=== PATIENT | female | born 1960 | race Caucasian/White ===

== ENCOUNTER 2018-03-13 08:00 | Outpatient (CLI) | payer MEDICARE ==
[2018-03-13 13:11] LABS: BASOPHILS # (AUTO) 0.1 10^3/uL (0.0-0.1); BASOPHILS % (AUTO) 0.9 %; EOSINOPHILS # (AUTO) 0.5 10^3/uL (0.0-0.7); EOSINOPHILS % (AUTO) 5.7 %; HGB - HEMOGLOBIN 12.4 g/dL (12.0-16.0); LYMPHOCYTES # (AUTO) 2.6 10^3/uL (1.5-3.5); LYMPHOCYTES % (AUTO) 29.3 %; MEAN CORPUSCULAR HEMOGLOBIN 28.7 pg (27.0-31.0); MEAN CORPUSCULAR HGB CONC 33.5 g/dL (32.0-36.0); MEAN CORPUSCULAR VOLUME 85.8 fL (81.0-99.0); MEAN PLATELET VOLUME 8.9 fL (7.9-10.8); MONOCYTES # (AUTO) 0.5 10^3/uL (0.0-1.0); MONOCYTES % (AUTO) 5.9 %; NEUTROPHILS # (AUTO) 5.1 10^3/uL (1.5-6.6); NEUTROPHILS % (AUTO) 58.2 %; PLT - PLATELET COUNT 252 10^3/uL (130-450); RED BLOOD COUNT 4.31 10^6/uL (4.20-5.40); RED CELL DISTRIBUTION WIDTH 14.3 % (12.0-15.0); WHITE BLOOD COUNT 8.8 x10^3/uL (4.8-10.8)
[2018-03-13 13:55] LABS: HB2 TOTAL 13.5 g/dL; HEMOGLOBIN A1C 0.85 g/dL; HEMOGLOBIN A1C % 7.9 % (4.6-6.2)
[2018-03-13 14:02] LABS: ALBUMIN/GLOBULIN RATIO 1.3 (1.0-2.2); ALKALINE PHOSPHATASE 76 IU/L (42-121); ALT ALANINE AMINOTRANSFERASE 20 IU/L (10-60); AST ASPARTATE AMINOTRANSFERASE 15 IU/L (10-42); BILIRUBIN,TOTAL 0.2 mg/dL (0.2-1.0); BUN - BLOOD UREA NITROGEN 13 mg/dL (6-20); CALCIUM 9.1 mg/dL (8.5-10.3); CARBON DIOXIDE - CO2 28 mmol/L (21-32); CHLORIDE 106 mmol/L (101-111); CHOL/HDL RATIO 4.8 (<4.4); CHOLESTEROL 126 mg/dL; CREATININE 0.6 mg/dL (0.4-1.0); GFR - MDRD 103 (>89); GLUCOSE 119 mg/dL (70-100); HDL CHOLESTEROL 26 mg/dL; LDL CHOLESTEROL,CALCULATED 68 mg/dL; LDL/HDL RATIO 2.6 (<4.4); SODIUM 140 mmol/L (135-145); TOTAL PROTEIN 7.1 g/dL (6.7-8.2); VLDL CHOLESTEROL 32 mg/dL
== END 2018-03-13 08:01 | disposition home or self-care (01) ==
LOC: LAB.N 08:00
PROVIDERS: ATTEND Nurse Practitioner
DX: E11.9 Type 2 diabetes mellitus without complications (principal); E55.9 Vitamin D deficiency, unspecified; E78.5 Hyperlipidemia, unspecified; I10 Essential (primary) hypertension; Z79.4 Long term (current) use of insulin
CPT/HCPCS: 36415; 80053; 80061; 82043; 82306; 83036; 83721; 84443; 85025

== ENCOUNTER 2018-07-05 07:55 | Outpatient (CLI) | payer MEDICARE ==
[2018-07-05 13:10] LABS: HB2 TOTAL 13.3 g/dL; HEMOGLOBIN A1C 0.64 g/dL; HEMOGLOBIN A1C % 6.6 % (4.6-6.2)
[2018-07-05 13:43] LABS: ALBUMIN 3.7 g/dL (3.2-5.5); ALBUMIN/GLOBULIN RATIO 1.2 (1.0-2.2); ALKALINE PHOSPHATASE 62 IU/L (42-121); ALT ALANINE AMINOTRANSFERASE 17 IU/L (10-60); AST ASPARTATE AMINOTRANSFERASE 16 IU/L (10-42); BILIRUBIN,TOTAL 0.6 mg/dL (0.2-1.0); BUN - BLOOD UREA NITROGEN 13 mg/dL (6-20); CALCIUM 9.2 mg/dL (8.5-10.3); CARBON DIOXIDE - CO2 27 mmol/L (21-32); CHLORIDE 104 mmol/L (101-111); CHOL/HDL RATIO 4.6 (<4.4); CHOLESTEROL 137 mg/dL; CREATININE 0.6 mg/dL (0.4-1.0); GFR - MDRD 103 (>89); GLUCOSE 118 mg/dL (70-100); HDL CHOLESTEROL 30 mg/dL; LDL CHOLESTEROL,CALCULATED 62 mg/dL; LDL/HDL RATIO 2.1 (<4.4); SODIUM 139 mmol/L (135-145); TOTAL PROTEIN 6.8 g/dL (6.7-8.2); VLDL CHOLESTEROL 45 mg/dL
== END 2018-07-05 07:56 | disposition home or self-care (01) ==
LOC: LAB.N 07:55
PROVIDERS: ATTEND Nurse Practitioner
DX: E11.9 Type 2 diabetes mellitus without complications (principal)
CPT/HCPCS: 36415; 80053; 80061; 82043; 83036; 83721; 84443

== ENCOUNTER 2019-01-16 08:00 | Outpatient (CLI) | payer MEDICARE ==
[2019-01-16 13:15] LABS: ALBUMIN 3.8 g/dL (3.2-5.5); ALBUMIN/GLOBULIN RATIO 1.2 (1.0-2.2); ALKALINE PHOSPHATASE 70 IU/L (42-121); ALT ALANINE AMINOTRANSFERASE 21 IU/L (10-60); AST ASPARTATE AMINOTRANSFERASE 16 IU/L (10-42); BILIRUBIN,TOTAL 0.5 mg/dL (0.2-1.0); BUN - BLOOD UREA NITROGEN 14 mg/dL (6-20); CARBON DIOXIDE - CO2 26 mmol/L (21-32); CHLORIDE 102 mmol/L (101-111); CHOL/HDL RATIO 4.6 (<4.4); CHOLESTEROL 134 mg/dL; CREATININE 0.5 mg/dL (0.4-1.0); GFR - MDRD 127 (>89); GLUCOSE 192 mg/dL (70-100); HDL CHOLESTEROL 29 mg/dL; LDL CHOLESTEROL,CALCULATED 75 mg/dL; LDL/HDL RATIO 2.6 (<4.4); SODIUM 137 mmol/L (135-145); TOTAL PROTEIN 6.9 g/dL (6.7-8.2); VLDL CHOLESTEROL 30 mg/dL
[2019-01-16 13:19] LABS: HB2 TOTAL 14.1 g/dL; HEMOGLOBIN A1C 0.98 g/dL; HEMOGLOBIN A1C % 8.5 % (4.6-6.2)
== END 2019-01-16 23:59 | disposition home or self-care (01) ==
LOC: LAB.N 08:00
PROVIDERS: ATTEND Nurse Practitioner
DX: E11.9 Type 2 diabetes mellitus without complications (principal)
CPT/HCPCS: 36415; 80053; 80061; 82043; 83036; 83721; 84443

== ENCOUNTER 2019-05-08 08:00 | Outpatient (CLI) | payer MEDICARE ==
[2019-05-08 13:26] LABS: HB2 TOTAL 12.7 g/dL; HEMOGLOBIN A1C 0.82 g/dL; HEMOGLOBIN A1C % 8.1 % (4.6-6.2)
[2019-05-08 13:30] LABS: MICROALBUM/CREATININE RATIO,UR 22.6 ug/mg (<30.0); MICROALBUMIN,URINE 1.9 mg/dL (0-300.0)
[2019-05-08 13:31] LABS: ALBUMIN 3.9 g/dL (3.2-5.5); ALBUMIN/GLOBULIN RATIO 1.1 (1.0-2.2); ALKALINE PHOSPHATASE 61 IU/L (42-121); ALT ALANINE AMINOTRANSFERASE 17 IU/L (10-60); AST ASPARTATE AMINOTRANSFERASE 16 IU/L (10-42); BILIRUBIN,TOTAL 0.4 mg/dL (0.2-1.0); BUN - BLOOD UREA NITROGEN 12 mg/dL (6-20); CARBON DIOXIDE - CO2 25 mmol/L (21-32); CHLORIDE 103 mmol/L (101-111); CHOL/HDL RATIO 3.1 (<4.4); CHOLESTEROL 109 mg/dL; CREATININE 0.5 mg/dL (0.4-1.0); GFR - MDRD 126 (>89); GLUCOSE 134 mg/dL (70-100); HDL CHOLESTEROL 35 mg/dL; LDL CHOLESTEROL,CALCULATED 57 mg/dL; LDL/HDL RATIO 1.6 (<4.4); SODIUM 137 mmol/L (135-145); TOTAL PROTEIN 7.3 g/dL (6.7-8.2); VLDL CHOLESTEROL 17 mg/dL
== END 2019-05-08 23:59 | disposition home or self-care (01) ==
LOC: LAB.N 08:00
PROVIDERS: ATTEND Physician Assistant Medical
DX: E11.9 Type 2 diabetes mellitus without complications (principal); Z79.4 Long term (current) use of insulin
CPT/HCPCS: 36415; 80053; 80061; 82043; 82570; 83036; 83721; 84443

== ENCOUNTER 2019-09-02 10:15 | Outpatient (CLI) | payer MEDICARE ==
[2019-09-02 12:43] LABS: HB2 TOTAL 13.4 g/dL; HEMOGLOBIN A1C 0.68 g/dL; HEMOGLOBIN A1C % 6.8 % (4.6-6.2)
== END 2019-09-02 23:59 | disposition home or self-care (01) ==
LOC: LAB.N 10:15
PROVIDERS: ATTEND Physician Assistant Medical
DX: E11.9 Type 2 diabetes mellitus without complications (principal)
CPT/HCPCS: 36415; 83036

== ENCOUNTER 2020-03-13 10:59 | Outpatient (CLI) | payer MEDICARE ==
[2020-03-13 11:18] LABS: BASOPHILS # (AUTO) 0.1 10^3/uL (0.0-0.1); BASOPHILS % (AUTO) 0.9 %; EOSINOPHILS # (AUTO) 0.3 10^3/uL (0.0-0.7); EOSINOPHILS % (AUTO) 2.8 %; HGB - HEMOGLOBIN 13.1 g/dL (12.0-16.0); LYMPHOCYTES # (AUTO) 3.1 10^3/uL (1.5-3.5); LYMPHOCYTES % (AUTO) 26.3 %; MEAN CORPUSCULAR HEMOGLOBIN 28.8 pg (27.0-31.0); MEAN CORPUSCULAR VOLUME 89.9 fL (81.0-99.0); MEAN PLATELET VOLUME 9.6 fL (7.9-10.8); MONOCYTES # (AUTO) 0.8 10^3/uL (0.0-1.0); MONOCYTES % (AUTO) 6.6 %; NEUTROPHILS # (AUTO) 7.3 10^3/uL (1.5-6.6); NEUTROPHILS % (AUTO) 62.9 %; PLT - PLATELET COUNT 280 10^3/uL (130-450); RED BLOOD COUNT 4.55 10^6/uL (4.20-5.40); RED CELL DISTRIBUTION WIDTH 14.7 % (12.0-15.0); WHITE BLOOD COUNT 11.6 x10^3/uL (4.8-10.8)
[2020-03-13 11:35] LABS: HB2 TOTAL 13.6 g/dL; HEMOGLOBIN A1C 0.67 g/dL; HEMOGLOBIN A1C % 6.7 % (4.6-6.2)
[2020-03-13 11:40] LABS: ALBUMIN 4.3 g/dL (3.2-5.5); ALBUMIN/GLOBULIN RATIO 1.2 (1.0-2.2); ALKALINE PHOSPHATASE 79 IU/L (42-121); ALT ALANINE AMINOTRANSFERASE 20 IU/L (10-60); AST ASPARTATE AMINOTRANSFERASE 17 IU/L (10-42); BILIRUBIN,TOTAL 0.7 mg/dL (0.2-1.0); BUN - BLOOD UREA NITROGEN 20 mg/dL (6-20); CALCIUM 9.2 mg/dL (8.5-10.3); CARBON DIOXIDE - CO2 25 mmol/L (21-32); CHLORIDE 102 mmol/L (101-111); CHOL/HDL RATIO 2.8 (<4.4); CHOLESTEROL 129 mg/dL; CK- CREATINE KINASE 67 IU/L (22-269); CREATININE 0.7 mg/dL (0.4-1.0); GLUCOSE 126 mg/dL (70-100); HDL CHOLESTEROL 46 mg/dL; LDL CHOLESTEROL,CALCULATED 67 mg/dL; LDL/HDL RATIO 1.5 (<4.4); SODIUM 136 mmol/L (135-145); VLDL CHOLESTEROL 16 mg/dL
[2020-03-13 11:48] LABS: CREATININE,URINE 35.3 mg/dL; MICROALBUM/CREATININE RATIO,UR 36.8 ug/mg (<30.0); MICROALBUMIN,URINE 1.3 mg/dL (0-300.0)
[2020-03-14 12:09] LABS: HEPATITIS C ANTIBODY NON-REACTIVE (NON-REACTIVE)
== END 2020-03-13 11:00 | disposition home or self-care (01) ==
LOC: LAB 10:59
PROVIDERS: ATTEND Internal Medicine
DX: Z79.899 Other long term (current) drug therapy (principal); J44.9 Chronic obstructive pulmonary disease, unspecified; Z13.6 Encounter for screening for cardiovascular disorders; K21.9 Gastro-esophageal reflux disease without esophagitis; M79.7 Fibromyalgia; E11.9 Type 2 diabetes mellitus without complications; I10 Essential (primary) hypertension
CPT/HCPCS: 36415; 80053; 80061; 82043; 82550; 82570; 83036; 83721; 84443; 85025; 86803

== ENCOUNTER 2020-06-08 13:12 | Outpatient (CLI) | payer MEDICARE ==
--- NOTE | 2020-06-09 15:11 | Mammography Report ---
BILATERAL DIGITAL SCREENING MAMMOGRAM 3D/2D: 06/08/2020 CLINICAL: Routine screening. Comparison is made to exams dated: 03/09/2017 mammogram, 02/11/2016 mammogram, and 02/05/2015 mammogram - [facility]. The tissue of both breasts is predominantly fatty. No significant masses, calcifications, or other findings are seen in either breast. There has been no significant interval change. IMPRESSION: NEGATIVE There is no mammographic evidence of malignancy. A 1 year screening mammogram is recommended. This exam was interpreted at Station ID: [id number]. NOTE: For mammograms, a report in lay terms will be sent to the patient. Approximately 15% of breast malignancies will not be visualized mammographically. In the management of a palpable breast mass, a negative mammogram must not discourage biopsy of a clinically suspicious lesion. Electronically Signed By: Haroldo Cosme M.D., jr/lacie:06/08/2020 14:19:56 ACR BI-RADS Category 1: Negative 3341F PARENCHYMAL PATTERN: (F) - The breast(s) demonstrate(s) diffuse fatty replacement. BI-RADS CATEGORY: (1) - 1 RECOMMENDATION: (ANNUAL) - Recommend routine annual screening mammography. [id number] 1 year screening LATERALITY: (B)
== END 2020-06-08 13:13 | disposition home or self-care (01) ==
LOC: DI 13:12
PROVIDERS: ATTEND Internal Medicine
DX: Z12.31 Encounter for screening mammogram for malignant neoplasm of breast (principal)
CPT/HCPCS: 77063; 77067

== ENCOUNTER 2020-08-22 16:09 | Outpatient (CLI) | payer MEDICARE | END 2020-08-22 16:10 | disposition critical access hospital (66) | LOC: EMS 16:09 | PROVIDERS: ATTEND Surgery | DX: R41.82 Altered mental status, unspecified (principal) | CPT/HCPCS: A0425; A0427 ==

== ENCOUNTER 2020-08-22 16:28 | Inpatient (IN) | payer MEDICARE ==
[2020-08-22 17:14] LABS: BASOPHILS % (AUTO) 0.2 %; HGB - HEMOGLOBIN 12.3 g/dL (12.0-16.0); LYMPHOCYTES # (AUTO) 1.6 10^3/uL (1.5-3.5); LYMPHOCYTES % (AUTO) 8.4 %; MEAN CORPUSCULAR HEMOGLOBIN 28.7 pg (27.0-31.0); MEAN CORPUSCULAR HGB CONC 32.5 g/dL (32.0-36.0); MEAN CORPUSCULAR VOLUME 88.3 fL (81.0-99.0); MEAN PLATELET VOLUME 9.7 fL (7.9-10.8); MONOCYTES # (AUTO) 1.1 10^3/uL (0.0-1.0); MONOCYTES % (AUTO) 5.6 %; NEUTROPHILS # (AUTO) 16.1 10^3/uL (1.5-6.6); NEUTROPHILS % (AUTO) 85.1 %; PLT - PLATELET COUNT 287 10^3/uL (130-450); RED BLOOD COUNT 4.28 10^6/uL (4.20-5.40); RED CELL DISTRIBUTION WIDTH 13.9 % (12.0-15.0)
--- NOTE | 2020-08-22 17:19 | ED Physician Documentation ---
History of Present Illness - Stated complaint Stated Complaint: AMS - Chief complaint Chief Complaint: Neuro - History obtained from History obtained from: EMS - History of Present Illness Timing: Today Pain level max: 0 Pain level now: 0 - Additonal information Additional information: Very limited history available. The only history that is known is that the patient is a diabetic and the states that she is altered and somnolent today. No other history available. EMS states that her blood sugar was normal. Review of Systems Unable to obtain: AMS PD PAST MEDICAL HISTORY - Past Medical History Past Medical History: Yes Endocrine/Autoimmune: Type 2 diabetes - Allergies Allergies/Adverse Reactions: Allergies Allergy/AdvReac Type Severity Reaction Status Date / Time Unable to Assess Allergy Verified 08/22/20 16:34 PD ED PE NORMAL - Vitals Vital signs reviewed: Yes - General General: Other (unresponsive, breathing) - HEENT HEENT: Atraumatic, PERRL, Moist mucous membranes - Neck Neck: No bony TTP - Cardiac Cardiac: RRR - Respiratory Respiratory: No respiratory distress, Clear bilaterally - Abdomen Abdomen: Soft, Non tender, Non distended - Derm Derm: Warm and dry - Extremities Extremities: No edema, No calf tenderness / cord - Neuro Neuro: Other (unresponsive) Eye Opening: To Pain Motor: Localizes to Pain Verbal: None GCS Score: 8 Results - Vitals Vitals: Vital Signs - 24 hr 08/22/20 08/22/20 08/22/20 16:30 16:35 18:27 Temperature 37.1 C 37.1 C 37.1 C Heart Rate 108 H 109 H 110 H Respiratory 16 16 13 Rate Blood Pressure 120/61 125/58 L 117/60 O2 Saturation 95 96 98 08/22/20 20:00 Temperature 36.7 C Heart Rate 106 H Respiratory 24 Rate Blood Pressure 101/59 L O2 Saturation 95 Oxygen O2 Source Room air - Labs Labs: Laboratory Tests 08/22/20 08/22/20 08/22/20 17:06 17:06 17:06 WBC 19.0 H RBC 4.28 Hgb 12.3 Hct 37.8 MCV 88.3 MCH 28.7 MCHC 32.5 RDW 13.9 Plt Count 287 MPV 9.7 Neut # (Auto) 16.1 H Lymph # (Auto) 1.6 [place] # (Auto) 1.1 H Eos # (Auto) 0.0 Baso # (Auto) 0.0 Absolute Nucleated RBC 0.00 Nucleated RBC % 0.0 VBG pH VBG pCO2 VBG pO2 VBG HCO3 VBG Total CO2 VBG O2 Saturation VBG Base Excess Sodium 135 Potassium 4.3 Chloride 98 L Carbon Dioxide 27 Anion Gap 10.0 BUN 20 Creatinine 0.8 Estimated GFR (MDRD) 73 L Glucose 171 H Lactic Acid Calcium 10.1 Total Bilirubin 0.6 AST 12 ALT 15 Alkaline Phosphatase 64 Troponin I High Sens Total Protein 8.1 Albumin 3.9 Globulin 4.2 Albumin/Globulin Ratio 0.9 L Lipase 21 L TSH 0.22 L Free T4 Urine Color Urine Clarity Urine pH Ur Specific [place] Urine Protein Urine Glucose (UA) Urine Ketones Urine Occult Blood Urine Nitrite Urine Bilirubin Urine Urobilinogen Ur Leukocyte Esterase Urine RBC Urine WBC Urine WBC Clumps Ur Squamous Epith Cells Urine Bacteria Ur Microscopic Review Urine Culture Comments Salicylates < 6.0 Urine Opiates Screen Ur Oxycodone Screen Urine Methadone Screen Ur Propoxyphene Screen Acetaminophen < 10 L Ur Barbiturates Screen Ur Tricyclics Screen Ur Phencyclidine Scrn Ur Amphetamine Screen U Methamphetamines Scrn U Benzodiazepines Scrn Urine Cocaine Screen U Cannabinoids Screen Ethyl Alcohol < 5.0 08/22/20 08/22/20 08/22/20 17:06 17:06 17:40 WBC RBC Hgb Hct MCV MCH MCHC RDW Plt Count MPV Neut # (Auto) Lymph # (Auto) [place] # (Auto) Eos # (Auto) Baso # (Auto) Absolute Nucleated RBC Nucleated RBC % VBG pH VBG pCO2 VBG pO2 VBG HCO3 VBG Total CO2 VBG O2 Saturation VBG Base Excess Sodium Potassium Chloride Carbon Dioxide Anion Gap BUN Creatinine Estimated GFR (MDRD) Glucose Lactic Acid Calcium Total Bilirubin AST ALT Alkaline Phosphatase Troponin I High Sens 4.5 Total Protein Albumin Globulin Albumin/Globulin Ratio Lipase TSH Free T4 1.13 Urine Color YELLOW Urine Clarity HAZY Urine pH 6.0 Ur Specific [place] 1.025 Urine Protein 30 H Urine Glucose (UA) NEGATIVE Urine Ketones 40 H Urine Occult Blood TRACE-INTA Urine Nitrite POSITIVE H Urine Bilirubin NEGATIVE Urine Urobilinogen 0.2 (NORMAL) Ur Leukocyte Esterase NEGATIVE Urine RBC 6-10 H Urine WBC 11-25 H Urine WBC Clumps PRESENT Ur Squamous Epith Cells RARE Squamous Urine Bacteria Many H Ur Microscopic Review INDICATED Urine Culture Comments INDICATED Salicylates Urine Opiates Screen NEGATIVE Ur Oxycodone Screen NEGATIVE Urine Methadone Screen NEGATIVE Ur Propoxyphene Screen NEGATIVE Acetaminophen Ur Barbiturates Screen NEGATIVE Ur Tricyclics Screen POSITIVE H Ur Phencyclidine Scrn NEGATIVE Ur Amphetamine Screen NEGATIVE U Methamphetamines Scrn NEGATIVE U Benzodiazepines Scrn NEGATIVE Urine Cocaine Screen NEGATIVE U Cannabinoids Screen NEGATIVE Ethyl Alcohol 08/22/20 08/22/20 19:32 19:32 WBC RBC Hgb Hct MCV MCH MCHC RDW Plt Count MPV Neut # (Auto) Lymph # (Auto) [place] # (Auto) Eos # (Auto) Baso # (Auto) Absolute Nucleated RBC Nucleated RBC % VBG pH 7.488 H VBG pCO2 29.7 L VBG pO2 35.6 VBG HCO3 22.0 L VBG Total CO2 22.9 L VBG O2 Saturation 78.0 VBG Base Excess -0.4 Sodium Potassium Chloride Carbon Dioxide Anion Gap BUN Creatinine Estimated GFR (MDRD) Glucose Lactic Acid 1.8 Calcium Total Bilirubin AST ALT Alkaline Phosphatase Troponin I High Sens Total Protein Albumin Globulin Albumin/Globulin Ratio Lipase TSH Free T4 Urine Color Urine Clarity Urine pH Ur Specific [place] Urine Protein Urine Glucose (UA) Urine Ketones Urine Occult Blood Urine Nitrite Urine Bilirubin Urine Urobilinogen Ur Leukocyte Esterase Urine RBC Urine WBC Urine WBC Clumps Ur Squamous Epith Cells Urine Bacteria Ur Microscopic Review Urine Culture Comments Salicylates Urine Opiates Screen Ur Oxycodone Screen Urine Methadone Screen Ur Propoxyphene Screen Acetaminophen Ur Barbiturates Screen Ur Tricyclics Screen Ur Phencyclidine Scrn Ur Amphetamine Screen U Methamphetamines Scrn U Benzodiazepines Scrn Urine Cocaine Screen U Cannabinoids Screen Ethyl Alcohol - Rads (name of study) head CT Radiology: Prelim report reviewed, EMP read contemporaneously, See rad report (No acute intracranial abnormality ) cxr Radiology: Prelim report reviewed, EMP read contemporaneously, See rad report (Bilateral pulmonary edema which may reflect cardiogenic or noncardiogenic etiologies such as atypical infection. ) abd/pelvis CT Radiology: Prelim report reviewed, EMP read contemporaneously, See rad report PD MEDICAL DECISION MAKING - ED course Complexity details: reviewed results, re-evaluated patient, considered differential, d/w patient, d/w artist consultant ED course: Unclear etiology of the patient's symptoms. Does have significant leukocytosis and a UTI. Given IV fluids and IV antibiotics. Her mental status gradually improved. She is still mildly slow to respond but is speaking and speaking clearly. She states she feels much better. Neck is supple and full range of motion. No signs of encephalitis or meningitis. No acute findings on head CT. We will place the patient in observation to see how she progresses overnight. Discussed the case with Dr. Luong, hospitalist who accepts. This document was made in part using voice recognition software. While efforts are made to proofread this document, sound alike and grammatical errors may occur. 1. Mild colonic wall thickening within the descending and sigmoid colon suggestive of a mild infectious or inflammatory colitis. 2. Mild gastric wall thickening and mucosal enhancement in the antrum may reflect a mild gastritis. 3. Colonic diverticulosis without acute diverticulitis. Departure - Departure Disposition: ED Place in Observation Clinical Impression: Altered mental status Qualifiers: Altered mental status type: unspecified Qualified Code(s): R41.82 - Altered mental status, unspecified UTI (urinary tract infection) Qualifiers: Urinary tract infection type: acute cystitis Hematuria presence: without hematuria Qualified Code(s): N30.00 - Acute cystitis without hematuria Condition: Stable Discharge Date/Time: 08/22/20 21:43
[2020-08-22 17:31] LABS: ACETAMINOPHEN < 10 ug/mL (10-30); ALBUMIN 3.9 g/dL (3.2-5.5); ALBUMIN/GLOBULIN RATIO 0.9 (1.0-2.2); ALKALINE PHOSPHATASE 64 IU/L (42-121); ALT ALANINE AMINOTRANSFERASE 15 IU/L (10-60); AST ASPARTATE AMINOTRANSFERASE 12 IU/L (10-42); BILIRUBIN,TOTAL 0.6 mg/dL (0.2-1.0); BUN - BLOOD UREA NITROGEN 20 mg/dL (6-20); CALCIUM 10.1 mg/dL (8.5-10.3); CARBON DIOXIDE - CO2 27 mmol/L (21-32); CHLORIDE 98 mmol/L (101-111); CREATININE 0.8 mg/dL (0.4-1.0); GLUCOSE 171 mg/dL (70-100); LIPASE 21 U/L (22-51); SALICYLATE < 6.0 mg/dL; SODIUM 135 mmol/L (135-145); TOTAL PROTEIN 8.1 g/dL (6.7-8.2)
--- NOTE | 2020-08-22 17:41 | CT Report ---
PROCEDURE: HEAD WO INDICATIONS: aloc TECHNIQUE: Noncontrast 4.5 mm thick angled axial sections acquired from the foramen magnum to the vertex. For r adiation dose reduction, the following was used: automated exposure control, adjustment of mA and/or kV according to patient size. COMPARISON: None. FINDINGS: Image quality: Excellent. CSF spaces: Basal cisterns are patent. No extra-axial fluid collections. Ventricles are normal in size and shape. Brain: No midline shift. No intracranial masses or hemorrhage. Travis-white matter interface is norm al. Skull and face: Calvarium and visualized facial bones are intact, without suspicious lesions. Sinuses: Mild mucosal thickening is seen within the ethmoid air cells. The paranasal sinuses otherwi se appear clear. Minimal fluid is seen within the right mastoid air cells. There has been a prior lef t mastoidectomy, with prominent fluid seen within the remaining left mastoid air cells. IMPRESSION: No acute intracranial abnormality is detected to explain the patient's presenting histor y. Prior left mastoidectomy, with prominent mastoid air cell fluid. A minimal amount of right-sided mast oid air cell fluid can be seen. Reviewed by: Zev Swanson MD on 08/22/2020 4:39 PM RUBY Approved by: Zev Swanson MD on 08/22/2020 4:39 PM RUBY Station ID: [id number]
[2020-08-22 17:46] LABS: MUDS CUTOFF CONCENTRATIONS CUTOFF CONC BELOW:
[2020-08-22 17:51] LABS: BILIRUBIN,URINE NEGATIVE (NEGATIVE); GLUCOSE, URINE (UA) NEGATIVE (NEGATIVE); KETONES,URINE (UA) 40 mg/dL (NEGATIVE); LEUKOCYTE ESTERASE, URINE NEGATIVE (NEGATIVE); NITRITE,URINE POSITIVE (NEGATIVE); OCCULT BLOOD,URINE TRACE-INTA (NEGATIVE); PROTEIN,URINE 30 mg/dL (NEGATIVE); UROBILINOGEN,URINE 0.2 (NORMAL) E.U./dL (NORMAL)
[2020-08-22 18:01] LABS: CLARITY,URINE HAZY (CLEAR)
[2020-08-22 18:02] LABS: AMPHETAMINE SCREEN,URINE NEGATIVE (NEGATIVE); BACTERIA,URINE Many /HPF (None Seen); BENZODIAZEPINES SCREEN, URINE NEGATIVE (NEGATIVE); COCAINE SCREEN URINE NEGATIVE (NEGATIVE); METHADONE SCREEN, URINE NEGATIVE (NEGATIVE); METHAMPHETAMINES SCREEN, URINE NEGATIVE (NEGATIVE); OPIATE SCREEN, URINE NEGATIVE (NEGATIVE); OXYCODONE SCREEN, URINE NEGATIVE (NEGATIVE); PROPOXYPHENE SCREEN, URINE NEGATIVE (NEGATIVE); SQUAMOUS EPITHELIAL CELL,UR RARE Squamous (<= Few); TRICYCLIC ANTIDEPRESSANT,URINE POSITIVE (NEGATIVE); WBC CLUMPS,URINE PRESENT
[2020-08-22] MEDS ORDERED: PIPERACILLIN/TAZOBACTAM 4.5 GM in SODIUM CHLORIDE 0.9% MINIBAG 100 ML IV STA (18:25)
[2020-08-22] MEDS ORDERED: VANCOMYCIN INJ 1 GM in SODIUM CHLORIDE 0.9% 500 ML IV STA (18:25)
[2020-08-22] MEDS ORDERED: SODIUM CHLORIDE 0.9% 1,000 ML IV STA ×2 (18:26→19:15)
[2020-08-22] MEDS ORDERED: VANCOMYCIN 1 GM VIAL ONE (18:39)
[2020-08-22 19:38] LABS: VBG BASE EXCESS -0.4 mmol/L (-2 - +2); VBG PCO2 29.7 mmHg (41-51); VBG PH 7.488 (7.31-7.41); VBG PO2 35.6 mmHg (25-47); VBG TOTAL CO2 22.9 mmol/L (24-29)
[2020-08-22] MEDS ORDERED: IOVERSOL 320 100 ML VIAL IVP ONE ×2 (20:36→20:55)
[2020-08-22] MEDS ORDERED: SODIUM CHLORIDE FLUSH 0.9% 10 ML SYRINGE IVP PRN (21:00)
[2020-08-22] MEDS ORDERED: ONDANSETRON 4 MG/2 ML VIAL IVP PRN (21:00)
[2020-08-22] MEDS ORDERED: ACETAMINOPHEN 325 MG TABLET PO PRN (21:00)
--- NOTE | 2020-08-22 21:05 | HISTORY & PHYSICAL EXAMINATION ---
Chief Complaint - Chief Complaint Chief Complaint: increased somnolence, confusion History of Present Illness - Admitted From Admitted From:: [facility] ED - History Obtained From Records Reviewed: Yes History obtained from: Patient spouse Exam Limitations: Confusion - History of Present Illness HPI Comment/Other: Patient is a 60-year-old female with history of COPD, fibromyalgia, arthritis, hypertension, diabetes mellitus on Levemir, hyperlipidemia who presented to the ED today with increased somnolence. She was brought to the emergency department by her who reported that the patient has been sleeping most of the day since yesterday. She has also been unable to do much. The patient has complained of increased urinary frequency over the past week. In the ED work-up included a CBC which showed a WBC of 19. She also had a urinary analysis done which was strongly indicated of a UTI. It was positive for nitrites, urine had 11-25 WBCs, many bacteria and WBC clumps. 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 Patient's mother from lung cancer at age 62. Mesothelioma. Patient has 2 brothers with seizures. Patient's 3 brothers have undergone CABG. The patient's children are all healthy Living arrangement: At home Living Situation: With family Social History Notes: She smokes about 1 pack/day and has been smoking for 40+ years. She rarely drinks alcohol and does not use any recreational substances. Meds/Allgy - Allergies Allergies/Adverse Reactions: Allergies Allergy/AdvReac Type Severity Reaction Status Date / Time azithromycin Allergy Unknown Verified 08/22/20 22:59 [From Zithromax Z-Donald] Review of Systems - Constitutional Constitutional: reports: Weakness, Other (Altered mental status). denies: Fatigue, Fever, Chills - Eyes Eyes: denies: Pain - Ears, Nose & Throat Ears, Nose & Throat: denies: Ear pain - Cardiovascular Cariovascular: denies: Irregular heart rate, Palpitations, Chest pain, Edema, Lightheadedness - Respiratory Respiratory: denies: Cough, Sputum production, Wheezing, SOB at rest, SOB with exertion - Gastrointestinal Gastrointestinal: denies: Abdominal pain, Abdominal distention, Constipation, Nausea, Vomiting - Genitourinary Genitourinary: reports: Frequency - Musculoskeletal Musculoskeletal: denies: Muscle pain, Back pain, Muscle aches - Integumentary Integumentary: denies: Rash, Pruritis, Lesions - Neurological Neurological: reports: General weakness. denies: Focal weakness, Headache - Psychiatric Psychiatric: denies: Depression, Anxiety - Endocrine Endocrine: denies: Polyuria, Polydypsia - Hematologic/Lymphatic Hematologic/Lymphatic: denies: Anemia, Bruising, Petechiae Prior Level of Functionality: Patient is normally independent of activities of daily living Exam - Vital Signs Vital Signs: Vital Signs x48h Temp Pulse Resp BP Pulse Ox 08/22/20 20:00 36.7 C 106 H 24 101/59 L 95 08/22/20 18:27 37.1 C 110 H 13 117/60 98 08/22/20 16:35 37.1 C 109 H 16 125/58 L 96 08/22/20 16:30 37.1 C 108 H 16 120/61 95 - Physical Exam General Appearance: positive: No acute distress, Alert, Other (Not oriented to time place or reason) Eyes Bilateral: positive: PERRL, EOMI ENT: positive: No signs of dehydration Neck: positive: No JVD, Trachea midline Respiratory: positive: Chest non-tender, No respiratory distress, Breath sounds nml. negative: Wheezes, Rales, Rhonchi Cardiovascular: positive: Tachycardia Abdomen: positive: Non-tender, Nml bowel sounds, No distention. negative: Guarding, Rebound Back: positive: Nml inspection Skin: positive: Color nml, No rash, Warm, Dry Extremities: positive: Non-tender, Full ROM, Nml appearance, No pedal edema Neurologic/Psychiatric: positive: Mood/affect nml, Disoriented to place, Disoriented to time Conclusion/Plan - Problem List (1) UTI (urinary tract infection) Conclusion/Plan: Patient administered vancomycin and Zosyn in the ED. We will continue Zosyn 3.375 mg every 6 hours. Urine and blood cultures pending Qualifiers: Urinary tract infection type: acute cystitis Hematuria presence: without hematuria Qualified Code(s): N30.00 - Acute cystitis without hematuria (2) Diabetes mellitus Conclusion/Plan: Lantus 20 units subcu daily ordered. Moderate dose sliding scale insulin ordered. We will check hemoglobin A1c in the morning. Qualifiers: Diabetes mellitus type: type 2 (3) Hypertension Conclusion/Plan: Patient is on lisinopril. Will resume once verified. (4) Hyperlipidemia Conclusion/Plan: Patient uses simvastatin at home. We will use the equivalent on formulary once verified. (5) COPD (chronic obstructive pulmonary disease) Conclusion/Plan: Not in exacerbation. Will order breathing treatment if and when needed. (6) Fibromyalgia Conclusion/Plan: We will hold any narcotics for now due to altered mental status. Patient is on a tricyclic antidepressant. We will continue - Lab Results Fish Bones: 08/22/20 17:06 08/22/20 17:06 Core Measures - Anticipated LOS I expect patient to be DC'd or transferred within 96 hours.: Yes - DVT/VTE - Prophylaxis VTE/DVT Device ordered at admit?: Yes VTE/DVT Prophylaxis med ordered at admit?: Yes
--- NOTE | 2020-08-22 21:26 | XRAY Report ---
PROCEDURE: Chest 1 View X-Ray INDICATIONS: fever, aloc TECHNIQUE: One view of the chest was acquired. COMPARISON: None. FINDINGS: Surgical changes and devices: None. Lungs and pleura: No focal consolidation. There is bilateral pulmonary vascular prominence suggestiv e of mild edema. No pleural effusions or pneumothorax. Mediastinum: Mediastinal contours appear normal. Heart size is normal. Bones and chest wall: No suspicious bony lesions. Overlying soft tissues appear unremarkable. IMPRESSION: 1. Bilateral pulmonary edema which may reflect cardiogenic or noncardiogenic etiologies such as atypi esau infection. Reviewed by: Avtar Antonio MD on 08/22/2020 9:25 PM PDT Approved by: Avtar Antonio MD on 08/22/2020 9:25 PM PDT Station ID: [id number]
--- NOTE | 2020-08-22 21:31 | CT Report ---
PROCEDURE: Abdomen/Pelvis W INDICATIONS: fever, abd pain CONTRAST: IV CONTRAST: Optiray 320 ml: 100 PO CONTRAST: *NO PO CONTRAST TECHNIQUE: After the administration of intravenous contrast, 5 mm thick sections acquired from the diaphragms to the symphysis. 5 mm thick coronal and sagittal reformats were acquired. For radiation dose reducti on, the following was used: automated exposure control, adjustment of mA and/or kV according to rowan ent size. COMPARISON: None. FINDINGS: Image quality: Excellent. ABDOMEN: Lung bases: There are groundglass opacities within the lung bases suggestive of pulmonary edema. Dep endent atelectasis is also demonstrated bilaterally as well as probable scarring in the left lower lo be. Heart size is normal. Solid organs: Evaluation of liver demonstrates no focal hepatic lesions. Gallbladder appears within n ormal limits without calcified gallstones. Biliary system is non dilated. Pancreas enhances normally . There is an indeterminate left adrenal nodule measuring up to 1.3 cm. The spleen is normal in size. There is a small splenic calcification suggestive of old granulomatous disease. Peritoneum and bowel: There is mild gastric wall thickening and mucosal enhancement in the antrum. S mall bowel loops demonstrate normal wall thickness and caliber. The appendix is normal in appearance. There is colonic diverticulosis without acute diverticulitis. There is mild segmental wall thickenin g within the descending and sigmoid colon suggestive of a mild colitis. No free fluid or air. Nodes and vessels: No retroperitoneal or mesenteric adenopathy by size criteria. Aorta and inferior vena cava are normal in size. Miscellaneous: No ventral hernias. PELVIS: Genitourinary: Bladder wall thickness is normal. The uterus is surgically absent. Miscellaneous: No inguinal hernias or adenopathy. Bones: No suspicious bony lesions. No vertebral body compression fractures. IMPRESSION: 1. Mild colonic wall thickening within the descending and sigmoid colon suggestive of a mild infectio us or inflammatory colitis. 2. Mild gastric wall thickening and mucosal enhancement in the antrum may reflect a mild gastritis. 3. Colonic diverticulosis without acute diverticulitis. Reviewed by: Avtar Antonio MD on 08/22/2020 9:30 PM PDT Approved by: Avtar Antonio MD on 08/22/2020 9:30 PM PDT Station ID: [id number]
[2020-08-22] MEDS: PIPERACILLIN/TAZOBACTAM 3.375 GM in SODIUM CHLORIDE 0.9% MINIBAG 100 ML IV SCH (23:15)
[2020-08-22] MEDS: SODIUM CHLORIDE 0.9% 1,000 ML IV SCH (23:20)
[2020-08-23] MEDS: SODIUM CHLORIDE FLUSH 0.9% 10 ML SYRINGE IVP SCH ×3 (02:17→16:40)
[2020-08-23 05:09] LABS: CALCIUM 8.6 mg/dL (8.5-10.3); CREATININE 0.5 mg/dL (0.4-1.0)
[2020-08-23 05:18] LABS: BASOPHILS % (AUTO) 0.3 %; EOSINOPHILS % (AUTO) 0.1 %; HGB - HEMOGLOBIN 10.4 g/dL (12.0-16.0); LYMPHOCYTES # (AUTO) 1.7 10^3/uL (1.5-3.5); LYMPHOCYTES % (AUTO) 12.1 %; MEAN CORPUSCULAR HEMOGLOBIN 29.1 pg (27.0-31.0); MEAN CORPUSCULAR HGB CONC 32.6 g/dL (32.0-36.0); MEAN CORPUSCULAR VOLUME 89.4 fL (81.0-99.0); MEAN PLATELET VOLUME 9.8 fL (7.9-10.8); MONOCYTES % (AUTO) 6.9 %; NEUTROPHILS # (AUTO) 11.3 10^3/uL (1.5-6.6); NEUTROPHILS % (AUTO) 79.9 %; PLT - PLATELET COUNT 255 10^3/uL (130-450); RED BLOOD COUNT 3.57 10^6/uL (4.20-5.40); RED CELL DISTRIBUTION WIDTH 13.8 % (12.0-15.0); WHITE BLOOD COUNT 14.2 x10^3/uL (4.8-10.8)
[2020-08-23] MEDS: PIPERACILLIN/TAZOBACTAM 3.375 GM in SODIUM CHLORIDE 0.9% MINIBAG 100 ML IV SCH (06:33)
[2020-08-23] MEDS: PANTOPRAZOLE 40 MG TABLET PO SCH (06:33)
[2020-08-23] MEDS ORDERED: INSULIN GLARGINE 300 UNIT/3 ML PEN SUBQ SCH (08:00)
[2020-08-23] MEDS: INSULIN ASPART 300 UNIT/3 ML PEN SUBQ SCH ×4 (08:24→20:47)
[2020-08-23] MEDS: ENOXAPARIN 40 MG/0.4 ML SYRINGE SUBQ SCH (08:33)
[2020-08-23] MEDS: SODIUM CHLORIDE 0.9% 1,000 ML IV SCH ×2 (08:33→20:09)
--- NOTE | 2020-08-23 14:35 | PROVIDER PROGRESS NOTE ---
Assessment/Plan - Problem List (1) Altered mental status Qualifiers: Altered mental status type: unspecified Qualified Code(s): R41.82 - Altered mental status, unspecified Assessment/Plan: Patient is mostly sleeping however she awakens to her name and touch. She thinks she is in [place], she did not know the date. There is a mild tremor of her lower jaw and her arms, I am concerned that there is a history of alcohol use. She did not improve with 1 day of IV hydration plus starting antibiotics for UTI. She will be admitted to inpatient status. (2) Dehydration Assessment/Plan: She has dry oral mucosa and is running "soft" blood pressures (not hypertensive and her BP meds have not been resumed). Continue with IV hydration. Follow BMP daily (3) UTI (urinary tract infection) Qualifiers: Urinary tract infection type: acute cystitis Hematuria presence: without hematuria Qualified Code(s): N30.00 - Acute cystitis without hematuria Assessment/Plan: Urinalysis was abnormal consistent with a UTI. She was started on Zosyn, I am not sure why ceftriaxone IV was not chosen. Await culture results (4) Diabetes mellitus Qualifiers: Diabetes mellitus type: type 2 Assessment/Plan: Her glucoses are running 1 30-1 70. She is mostly somnolent, not eating aggressively. We will decrease her Lantus insulin dose from 20-10 daily. Continue with a sliding scale coverage. Obtain A1c (5) Hypertension Assessment/Plan: Her home BP meds are on hold, she has "soft" blood pressure From dehydration (6) Hyperlipidemia Assessment/Plan: Her statin medication is on hold while she is confused (7) COPD (chronic obstructive pulmonary disease) Assessment/Plan: There is no exacerbation, she is comfortable on room air. (8) Fibromyalgia Assessment/Plan: There are no complaints of pain, she is mostly sleeping all day. Her pain meds are on hold so they do not cause oversedation (9) Anemia Assessment/Plan: Partly hemo-dilutional from the IV fluids she started to get for resuscitation. Will follow CBC daily. Check B12, folate, iron stores and replace if - Current Meds Current Meds: Current Medications Generic Name Dose Route Start Last Admin Trade Name Freq PRN Reason Stop Dose Admin Enoxaparin Sodium 40 mg 08/23/20 09:00 08/23/20 08:33 Lovenox SUBQ 40 mg DAILY MAGED Administration Sodium Chloride 1,000 mls @ 100 mls/hr 08/22/20 21:00 08/23/20 08:33 Normal Saline 0.9% IV 100 mls/hr .Q10H MAGED Administration Piperacillin Sod/Tazobactam 100 mls @ 25 mls/hr 08/22/20 23:00 08/23/20 10:35 Sod 3.375 gm/ Sodium Chloride IV Infused Q8H MAGED Infusion Insulin Aspart 1 - 9 unit 08/23/20 08:00 08/23/20 12:39 Novolog SUBQ Not Given 0800,1200,1700,2100 MAGED Protocol Pantoprazole Sodium 40 mg 08/23/20 07:00 08/23/20 06:33 Protonix PO 40 mg QDAC MAGED Administration Sodium Chloride 10 ml 08/23/20 01:00 08/23/20 08:34 Normal Saline Flush 0.9% IVP Not Given 0100,0900,1700 MAGED - Lab Result Fish Bone Diagrams: 08/23/20 04:30 08/23/20 04:30 - Additional Planning My Orders: My Active Orders 08/23/20 14:29 Admit \\ Transfer \\ Status [RC] .ONCE 08/24/20 08:00 Insulin Glargine [Lantus Solostar] 10 unit SUBQ QDBREAKFAST Subjective - Subjective Patient Reports: Resting Comfortably Objective Vital Signs: Vital Signs - 24 hr 08/22/20 08/22/20 08/22/20 16:30 16:35 18:27 Temperature 37.1 C 37.1 C 37.1 C Heart Rate 108 H 109 H 110 H Heart Rate [ Brachial] Respiratory 16 16 13 Rate Blood Pressure 120/61 125/58 L 117/60 Blood Pressure [Right Brachial artery] O2 Saturation 95 96 98 08/22/20 08/22/20 08/23/20 20:00 22:14 00:00 Temperature 36.7 C 36.5 C 36.5 C Heart Rate 106 H Heart Rate [ 104 H 91 Brachial] Respiratory 24 18 17 Rate Blood Pressure 101/59 L Blood Pressure 138/69 H 129/66 [Right Brachial artery] O2 Saturation 95 100 100 08/23/20 08/23/20 03:31 06:40 Temperature 36.6 C 37.2 C Heart Rate Heart Rate [ 91 94 Brachial] Respiratory 17 16 Rate Blood Pressure Blood Pressure 116/49 L 136/62 H [Right Brachial artery] O2 Saturation 96 97 Oxygen O2 Source Room air I&O (Last 24 Hrs): Intake and Output Totals x24h 08/21/20 08/22/20 08/23/20 23:59 23:59 23:59 Intake Total 0902.268 4484.950 Output Total 385 Balance 1955.051 2941.950 General: Other (lethargic, awakens) HEENT: Other (dry mucosa, jaw tremor) Neck: Supple, No JVD Neuro: Disoriented, Non Focal Cardiovascular: Regular rate, No murmurs Respiratory: No respiratory distress Abdomen: Soft Extremities: No edema - Results Results: Laboratory Results WBC 14.2 x10^3/uL (4.8-10.8) H 08/23/20 04:30 RBC 3.57 10^6/uL (4.20-5.40) L 08/23/20 04:30 Hgb 10.4 g/dL (12.0-16.0) L 08/23/20 04:30 Hct 31.9 % (37.0-47.0) L 08/23/20 04:30 MCV 89.4 fL (81.0-99.0) 08/23/20 04:30 MCH 29.1 pg (27.0-31.0) 08/23/20 04:30 MCHC 32.6 g/dL (32.0-36.0) 08/23/20 04:30 RDW 13.8 % (12.0-15.0) 08/23/20 04:30 Plt Count 255 10^3/uL (130-450) 08/23/20 04:30 MPV 9.8 fL (7.9-10.8) 08/23/20 04:30 Neut # (Auto) 11.3 10^3/uL (1.5-6.6) H 08/23/20 04:30 Lymph # (Auto) 1.7 10^3/uL (1.5-3.5) 08/23/20 04:30 [place] # (Auto) 1.0 10^3/uL (0.0-1.0) 08/23/20 04:30 Eos # (Auto) 0.0 10^3/uL (0.0-0.7) 08/23/20 04:30 Baso # (Auto) 0.0 10^3/uL (0.0-0.1) 08/23/20 04:30 Absolute Nucleated RBC 0.00 x10^3/uL 08/23/20 04:30 Nucleated RBC % 0.0 /100WBC 08/23/20 04:30 VBG pH 7.488 (7.31-7.41) H 08/22/20 19:32 VBG pCO2 29.7 mmHg (41-51) L 08/22/20 19:32 VBG pO2 35.6 mmHg (25-47) 08/22/20 19:32 VBG HCO3 22.0 mmol/L (23-28) L 08/22/20 19:32 VBG Total CO2 22.9 mmol/L (24-29) L 08/22/20 19:32 VBG O2 Saturation 78.0 % (60-80) 08/22/20 19:32 VBG Base Excess -0.4 mmol/L (-2 - +2) 08/22/20 19:32 Sodium 138 mmol/L (135-145) 08/23/20 04:30 Potassium 3.7 mmol/L (3.5-5.0) 08/23/20 04:30 Chloride 109 mmol/L (101-111) 08/23/20 04:30 Carbon Dioxide 20 mmol/L (21-32) L 08/23/20 04:30 Anion Gap 9.0 (6-13) 08/23/20 04:30 BUN 17 mg/dL (6-20) 08/23/20 04:30 Creatinine 0.5 mg/dL (0.4-1.0) 08/23/20 04:30 Estimated GFR (MDRD) 126 (>89) 08/23/20 04:30 Glucose 131 mg/dL (70-100) H 08/23/20 04:30 Lactic Acid 1.8 mmol/L (0.5-2.2) 08/22/20 19:32 Calcium 8.6 mg/dL (8.5-10.3) 08/23/20 04:30 Total Bilirubin 0.6 mg/dL (0.2-1.0) 08/22/20 17:06 AST 12 IU/L (10-42) 08/22/20 17:06 ALT 15 IU/L (10-60) 08/22/20 17:06 Alkaline Phosphatase 64 IU/L (42-121) 08/22/20 17:06 Troponin I High Sens 4.5 ng/L (2.3-14.8) 08/22/20 17:06 Total Protein 8.1 g/dL (6.7-8.2) 08/22/20 17:06 Albumin 3.9 g/dL (3.2-5.5) 08/22/20 17:06 Globulin 4.2 g/dL (2.1-4.2) 08/22/20 17:06 Albumin/Globulin Ratio 0.9 (1.0-2.2) L 08/22/20 17:06 Lipase 21 U/L (22-51) L 08/22/20 17:06 TSH 0.22 uIU/mL (0.34-5.60) L 08/22/20 17:06 Free T4 1.13 ng/dL (0.58-1.64) 08/22/20 17:06 Urine Color YELLOW 08/22/20 17:40 Urine Clarity HAZY (CLEAR) 08/22/20 17:40 Urine pH 6.0 PH (5.0-7.5) 08/22/20 17:40 Ur Specific [place] 1.025 (1.002-1.030) 08/22/20 17:40 Urine Protein 30 mg/dL (NEGATIVE) H 08/22/20 17:40 Urine Glucose (UA) NEGATIVE mg/dL (NEGATIVE) 08/22/20 17:40 Urine Ketones 40 mg/dL (NEGATIVE) H 08/22/20 17:40 Urine Occult Blood TRACE-INTA (NEGATIVE) 08/22/20 17:40 Urine Nitrite POSITIVE (NEGATIVE) H 08/22/20 17:40 Urine Bilirubin NEGATIVE (NEGATIVE) 08/22/20 17:40 Urine Urobilinogen 0.2 (NORMAL) E.U./dL (NORMAL) 08/22/20 17:40 Ur Leukocyte Esterase NEGATIVE (NEGATIVE) 08/22/20 17:40 Urine RBC 6-10 /HPF (0-5) H 08/22/20 17:40 Urine WBC 11-25 /HPF (0-5) H 08/22/20 17:40 Urine WBC Clumps PRESENT 08/22/20 17:40 Ur Squamous Epith Cells RARE Squamous (<= Few) 08/22/20 17:40 Urine Bacteria Many /HPF (None Seen) H 08/22/20 17:40 Ur Microscopic Review INDICATED 08/22/20 17:40 Urine Culture Comments INDICATED 08/22/20 17:40 Salicylates < 6.0 mg/dL 08/22/20 17:06 Urine Opiates Screen NEGATIVE (NEGATIVE) 08/22/20 17:40 Ur Oxycodone Screen NEGATIVE (NEGATIVE) 08/22/20 17:40 Urine Methadone Screen NEGATIVE (NEGATIVE) 08/22/20 17:40 Ur Propoxyphene Screen NEGATIVE (NEGATIVE) 08/22/20 17:40 Acetaminophen < 10 ug/mL (10-30) L 08/22/20 17:06 Ur Barbiturates Screen NEGATIVE (NEGATIVE) 08/22/20 17:40 Ur Tricyclics Screen POSITIVE (NEGATIVE) H 08/22/20 17:40 Ur Phencyclidine Scrn NEGATIVE (NEGATIVE) 08/22/20 17:40 Ur Amphetamine Screen NEGATIVE (NEGATIVE) 08/22/20 17:40 U Methamphetamines Scrn NEGATIVE (NEGATIVE) 08/22/20 17:40 U Benzodiazepines Scrn NEGATIVE (NEGATIVE) 08/22/20 17:40 Urine Cocaine Screen NEGATIVE (NEGATIVE) 08/22/20 17:40 U Cannabinoids Screen NEGATIVE (NEGATIVE) 08/22/20 17:40 Ethyl Alcohol < 5.0 mg/dL 08/22/20 17:06
[2020-08-23] MEDS: cefTRIAXone 2 GM in SODIUM CHLORIDE 0.9% MINIBAG 100 ML IV SCH (16:40)
[2020-08-24] MEDS ORDERED: diphenhydrAMINE 25 MG CAPSULE PO STA (02:23)
[2020-08-24] MEDS: SODIUM CHLORIDE FLUSH 0.9% 10 ML SYRINGE IVP SCH ×4 (02:28→21:08)
[2020-08-24] MEDS: PHENAZOPYRIDINE 100 MG TABLET PO SCH ×5 (02:44→21:31)
[2020-08-24] MEDS ORDERED: diphenhydrAMINE INJ 50 MG/ML VIAL IVP STA (03:29)
[2020-08-24] MEDS: SODIUM CHLORIDE 0.9% 1,000 ML IV SCH ×2 (04:03→15:28)
[2020-08-24 05:48] LABS: BASOPHILS % (AUTO) 0.2 %; HGB - HEMOGLOBIN 11.6 g/dL (12.0-16.0); LYMPHOCYTES % (AUTO) 5.8 %; MEAN CORPUSCULAR HEMOGLOBIN 29.2 pg (27.0-31.0); MEAN CORPUSCULAR HGB CONC 32.7 g/dL (32.0-36.0); MEAN CORPUSCULAR VOLUME 89.4 fL (81.0-99.0); MEAN PLATELET VOLUME 9.8 fL (7.9-10.8); MONOCYTES # (AUTO) 0.9 10^3/uL (0.0-1.0); MONOCYTES % (AUTO) 4.9 %; NEUTROPHILS # (AUTO) 15.4 10^3/uL (1.5-6.6); NEUTROPHILS % (AUTO) 88.1 %; PLT - PLATELET COUNT 237 10^3/uL (130-450); RED BLOOD COUNT 3.97 10^6/uL (4.20-5.40); RED CELL DISTRIBUTION WIDTH 13.8 % (12.0-15.0); WHITE BLOOD COUNT 17.5 x10^3/uL (4.8-10.8)
[2020-08-24 06:05] LABS: CALCIUM 8.6 mg/dL (8.5-10.3); CREATININE 0.6 mg/dL (0.4-1.0)
[2020-08-24] MEDS: PANTOPRAZOLE 40 MG TABLET PO SCH (07:03)
[2020-08-24] MEDS ORDERED: INSULIN GLARGINE 300 UNIT/3 ML PEN SUBQ SCH (08:00)
[2020-08-24] MEDS: ENOXAPARIN 40 MG/0.4 ML SYRINGE SUBQ SCH (08:21)
[2020-08-24] MEDS: cefTRIAXone 2 GM in SODIUM CHLORIDE 0.9% MINIBAG 100 ML IV SCH (08:21)
[2020-08-24] MEDS: polyethylene glycoL 3350 17 GM PACKET PO SCH (10:08)
[2020-08-24] MEDS: INSULIN ASPART 300 UNIT/3 ML PEN SUBQ SCH ×3 (10:31→17:26)
[2020-08-24 12:06] LABS: HEMOGLOBIN A1c% 6.9 % (4.27-6.07)
[2020-08-24] MEDS ORDERED: ACETAMINOPHEN 1,000 MG/100 ML 100 ML IV SCH (12:32)
--- NOTE | 2020-08-24 12:41 | PROVIDER PROGRESS NOTE ---
Assessment/Plan - Problem List (1) Altered mental status Qualifiers: Altered mental status type: unspecified Qualified Code(s): R41.82 - Altered mental status, unspecified Assessment/Plan: She is still not aware of where she is or what happened to her. She is spitting out her medications, refusing to swallow them. She did not eat any breakfast. Overnight she sundowned; was impulsive and getting out of bed for urinating very frequently, needed to be given iv Benadryl. Unclear if this is a new change in her confusion over her baseline or if she sundown's because of her age and physical condition. Head CT was done at admission that was unremarkable except for mastoid air cell fluid. told me she has some type of replacement in that left ear (which is MRI compatible), however it is not working and she is deaf in the left ear, he said. Continue to treat UTI and hydration. She has elevated anion gap and low serum CO2 today, concern for acidosis. Will obtain a VBG to check pH and check serum ketones. Because of her jaw tremor I was concerned that this could be alcohol induced mental status changes. CIWA protocol is ordered. I spoke to her by phone: she is disabled from Fibromyalgia and DJD and COPD, and does not drive for 21 years, she normally is communicative, jokes, makes meals, but has had recent anxiety over not seeing family during COVID. I described to the her physical and neurologic status today and this is entirely different, according to him. Will order brain MRI to look for stroke. Because she had a low-grade fever today, she may need a spinal tap for possible meningitis. Will reach out to Neurology following that for further recommendations (2) Dehydration Assessment/Plan: From her labs she has prerenal azotemia. She is not taking in any of her diet, her tray is being held. We will start IV fluids. (3) E. coli UTI Assessment/Plan: E coli grew in urine culture. Blood cultures are negative to date. She had a low-grade fever today. Will re-order blood cultures, UA for culture and a chest x-ray. She has been de-escalated from Zosyn down to IV ceftriaxone, unclear why Zosyn was picked initially. Await blood culture results. Await sensitivities from the E. coli in urine (4) Diabetes mellitus Qualifiers: Diabetes mellitus type: type 2 Assessment/Plan: She is refusing a diet. We will start D5 and her fluids. We will order sliding scale insulin for a patient that is n.p.o. (5) Hx of essential hypertension Assessment/Plan: She has not been getting any of her home blood pressure meds while here, blood pressures running 1 20-1 30 without any treatment. When needed, IV meds for blood pressure control can be started, allowing permissive hypertension if she is having a stroke. (6) Hyperlipidemia Assessment/Plan: Will put the statin on hold if she is not taking her p.o. meds (7) COPD (chronic obstructive pulmonary disease) Assessment/Plan: No exacerbation of COPD. The told me that they moved from the [place] to live in the [facility] and she has done remarkably well with her respiratory status since moving here 3 years ago (8) Anemia Assessment/Plan: Will check B12, folate levels and iron stores and replace if low (9) Fibromyalgia Assessment/Plan: As per Hx. - Current Meds Current Meds: Current Medications Generic Name Dose Route Start Last Admin Trade Name Freq PRN Reason Stop Dose Admin Enoxaparin Sodium 40 mg 08/23/20 09:00 08/24/20 08:21 Lovenox SUBQ 40 mg DAILY MAGED Administration Sodium Chloride 1,000 mls @ 100 mls/hr 08/22/20 21:00 08/24/20 04:03 Normal Saline 0.9% IV 100 mls/hr .Q10H MAGED Administration Ceftriaxone Sodium 2 gm/ 100 mls @ 200 mls/hr 08/23/20 17:00 08/24/20 10:35 Sodium Chloride IV Infused DAILY MAGED Infusion Insulin Aspart 1 - 9 unit 08/23/20 08:00 08/24/20 12:05 Novolog SUBQ 1 unit 0800,1200,1700,2100 MAGED Administration Protocol Insulin Glargine 10 unit 08/24/20 08:00 08/24/20 10:10 Lantus Solostar SUBQ Not Given QDBREAKFAST MAGED Pantoprazole Sodium 40 mg 08/23/20 07:00 08/24/20 07:03 Protonix PO Not Given QDAC MAGED Phenazopyridine HCl 100 mg 08/24/20 02:23 08/24/20 07:03 Pyridium PO Not Given TID MAGED Polyethylene Glycol 17 gm 08/24/20 09:00 08/24/20 10:08 Miralax PO Not Given DAILY MAGED Sodium Chloride 10 ml 08/23/20 01:00 08/24/20 10:10 Normal Saline Flush 0.9% IVP Not Given 0100,0900,1700 MAGED - Lab Result Fish Bone Diagrams: 08/24/20 05:34 08/24/20 05:34 - Additional Planning My Orders: My Active Orders 08/23/20 17:00 [email or web address] [Rocephin] 2 gm Sodium Chloride 0.9% Minibag [Normal Saline 0.9% Minibag] 100 ml IV DAILY 08/24/20 CULTURE, BLOOD #1 [RM] Stat CULTURE, BLOOD #2 [RM] Stat VENOUS BLOOD GAS [BG] Stat 08/24/20 08:00 Insulin Glargine [Lantus Solostar] 10 unit SUBQ QDBREAKFAST 08/24/20 09:00 polyethylene glycoL 3350 [Miralax] 17 gm PO DAILY 08/24/20 Lunch Regular Diet [DIET] 08/24/20 12:31 Chest 1 View X-Ray [XR] Stat 08/24/20 12:32 Acetaminophen 1,000 mg/100 ml [Ofirmev] 100 ml IV ONCE 08/24/20 Dinner Dysphagia Puree Diet [DIET] Subjective - Subjective Patient Reports: Other (Lethargic and somnolent. Was combative when stuck with a needle, answers "yeah, uhuh" to every question.) Nursing Reports: Other (She spit out her pills today) Objective Vital Signs: Vital Signs - 24 hr 08/23/20 08/23/20 08/23/20 16:00 21:00 23:44 Temperature 36.6 C 36.6 C 36.4 C L Heart Rate [ 86 93 83 Brachial] Respiratory 16 18 17 Rate Blood Pressure 153/70 H 153/63 H 146/61 H [Right Brachial artery] O2 Saturation 100 95 100 08/24/20 08/24/20 08/24/20 02:42 09:00 11:18 Temperature 37.4 C 37.5 C Heart Rate [ 87 75 Brachial] Respiratory 18 20 Rate Blood Pressure 152/82 H 135/54 H [Right Brachial artery] O2 Saturation 97 100 08/24/20 12:18 Temperature 37.1 C Heart Rate [ 57 L Brachial] Respiratory 18 Rate Blood Pressure 140/57 H [Right Brachial artery] O2 Saturation 97 Oxygen O2 Source Room air I&O (Last 24 Hrs): Intake and Output Totals x24h 08/22/20 08/23/20 08/24/20 23:59 23:59 23:59 Intake Total 1279.191 5710.950 940 Output Total 385 250 Balance 6060.948 3702.950 690 General: Other (lethargic, sleeping most of day) HEENT: Mucous membr. moist/pink Neck: Supple, No JVD Neuro: Disoriented, Non Focal, Other (Answers all questions with just a 2 word answer and it is the same 2 words. Only she is deaf in the left ear. She has a fine intermittent tremor of the lower jaw.) Cardiovascular: Regular rate Respiratory: No respiratory distress Abdomen: Soft Extremities: No edema - Results Results: Laboratory Results WBC 17.5 x10^3/uL (4.8-10.8) H 08/24/20 05:34 RBC 3.97 10^6/uL (4.20-5.40) L 08/24/20 05:34 Hgb 11.6 g/dL (12.0-16.0) L 08/24/20 05:34 Hct 35.5 % (37.0-47.0) L 08/24/20 05:34 MCV 89.4 fL (81.0-99.0) 08/24/20 05:34 MCH 29.2 pg (27.0-31.0) 08/24/20 05:34 MCHC 32.7 g/dL (32.0-36.0) 08/24/20 05:34 RDW 13.8 % (12.0-15.0) 08/24/20 05:34 Plt Count 237 10^3/uL (130-450) 08/24/20 05:34 MPV 9.8 fL (7.9-10.8) 08/24/20 05:34 Neut # (Auto) 15.4 10^3/uL (1.5-6.6) H 08/24/20 05:34 Lymph # (Auto) 1.0 10^3/uL (1.5-3.5) L 08/24/20 05:34 [place] # (Auto) 0.9 10^3/uL (0.0-1.0) 08/24/20 05:34 Eos # (Auto) 0.0 10^3/uL (0.0-0.7) 08/24/20 05:34 Baso # (Auto) 0.0 10^3/uL (0.0-0.1) 08/24/20 05:34 Absolute Nucleated RBC 0.00 x10^3/uL 08/24/20 05:34 Nucleated RBC % 0.0 /100WBC 08/24/20 05:34 VBG pH 7.488 (7.31-7.41) H 08/22/20 19:32 VBG pCO2 29.7 mmHg (41-51) L 08/22/20 19:32 VBG pO2 35.6 mmHg (25-47) 08/22/20 19:32 VBG HCO3 22.0 mmol/L (23-28) L 08/22/20 19:32 VBG Total CO2 22.9 mmol/L (24-29) L 08/22/20 19:32 VBG O2 Saturation 78.0 % (60-80) 08/22/20 19:32 VBG Base Excess -0.4 mmol/L (-2 - +2) 08/22/20 19:32 Sodium 137 mmol/L (135-145) 08/24/20 05:34 Potassium 3.3 mmol/L (3.5-5.0) L 08/24/20 05:34 Chloride 108 mmol/L (101-111) 08/24/20 05:34 Carbon Dioxide 12 mmol/L (21-32) L* 08/24/20 05:34 Anion Gap 17.0 (6-13) H 08/24/20 05:34 BUN 12 mg/dL (6-20) 08/24/20 05:34 Creatinine 0.6 mg/dL (0.4-1.0) 08/24/20 05:34 Estimated GFR (MDRD) 102 (>89) 08/24/20 05:34 Glucose 165 mg/dL (70-100) H 08/24/20 05:34 Estimat Average Glucose 151 mg/dL (70-100) H 08/24/20 05:34 Hemoglobin A1c % 6.9 % (4.27-6.07) H 08/24/20 05:34 Lactic Acid 1.8 mmol/L (0.5-2.2) 08/22/20 19:32 Calcium 8.6 mg/dL (8.5-10.3) 08/24/20 05:34 Total Bilirubin 0.6 mg/dL (0.2-1.0) 08/22/20 17:06 AST 12 IU/L (10-42) 08/22/20 17:06 ALT 15 IU/L (10-60) 08/22/20 17:06 Alkaline Phosphatase 64 IU/L (42-121) 08/22/20 17:06 Troponin I High Sens 4.5 ng/L (2.3-14.8) 08/22/20 17:06 Total Protein 8.1 g/dL (6.7-8.2) 08/22/20 17:06 Albumin 3.9 g/dL (3.2-5.5) 08/22/20 17:06 Globulin 4.2 g/dL (2.1-4.2) 08/22/20 17:06 Albumin/Globulin Ratio 0.9 (1.0-2.2) L 08/22/20 17:06 Lipase 21 U/L (22-51) L 08/22/20 17:06 TSH 0.22 uIU/mL (0.34-5.60) L 08/22/20 17:06 Free T4 1.13 ng/dL (0.58-1.64) 08/22/20 17:06 Urine Color YELLOW 08/22/20 17:40 Urine Clarity HAZY (CLEAR) 08/22/20 17:40 Urine pH 6.0 PH (5.0-7.5) 08/22/20 17:40 Ur Specific [place] 1.025 (1.002-1.030) 08/22/20 17:40 Urine Protein 30 mg/dL (NEGATIVE) H 08/22/20 17:40 Urine Glucose (UA) NEGATIVE mg/dL (NEGATIVE) 08/22/20 17:40 Urine Ketones 40 mg/dL (NEGATIVE) H 08/22/20 17:40 Urine Occult Blood TRACE-INTA (NEGATIVE) 08/22/20 17:40 Urine Nitrite POSITIVE (NEGATIVE) H 08/22/20 17:40 Urine Bilirubin NEGATIVE (NEGATIVE) 08/22/20 17:40 Urine Urobilinogen 0.2 (NORMAL) E.U./dL (NORMAL) 08/22/20 17:40 Ur Leukocyte Esterase NEGATIVE (NEGATIVE) 08/22/20 17:40 Urine RBC 6-10 /HPF (0-5) H 08/22/20 17:40 Urine WBC 11-25 /HPF (0-5) H 08/22/20 17:40 Urine WBC Clumps PRESENT 08/22/20 17:40 Ur Squamous Epith Cells RARE Squamous (<= Few) 08/22/20 17:40 Urine Bacteria Many /HPF (None Seen) H 08/22/20 17:40 Ur Microscopic Review INDICATED 08/22/20 17:40 Urine Culture Comments INDICATED 08/22/20 17:40 Salicylates < 6.0 mg/dL 08/22/20 17:06 Urine Opiates Screen NEGATIVE (NEGATIVE) 08/22/20 17:40 Ur Oxycodone Screen NEGATIVE (NEGATIVE) 08/22/20 17:40 Urine Methadone Screen NEGATIVE (NEGATIVE) 08/22/20 17:40 Ur Propoxyphene Screen NEGATIVE (NEGATIVE) 08/22/20 17:40 Acetaminophen < 10 ug/mL (10-30) L 08/22/20 17:06 Ur Barbiturates Screen NEGATIVE (NEGATIVE) 08/22/20 17:40 Ur Tricyclics Screen POSITIVE (NEGATIVE) H 08/22/20 17:40 Ur Phencyclidine Scrn NEGATIVE (NEGATIVE) 08/22/20 17:40 Ur Amphetamine Screen NEGATIVE (NEGATIVE) 08/22/20 17:40 U Methamphetamines Scrn NEGATIVE (NEGATIVE) 08/22/20 17:40 U Benzodiazepines Scrn NEGATIVE (NEGATIVE) 08/22/20 17:40 Urine Cocaine Screen NEGATIVE (NEGATIVE) 08/22/20 17:40 U Cannabinoids Screen NEGATIVE (NEGATIVE) 08/22/20 17:40 Ethyl Alcohol < 5.0 mg/dL 08/22/20 17:06
--- NOTE | 2020-08-24 13:07 | XRAY Report ---
PROCEDURE: Chest 1 View X-Ray INDICATIONS: Fever TECHNIQUE: One view of the chest was acquired. COMPARISON: 08/22/2020 FINDINGS: Surgical changes and devices: None. Lungs and pleura: There is mild pulmonary edema and pulmonary vascular congestion. No definite focal infiltrate. No significant pleural effusion or pneumothorax. Mediastinum: Mediastinal contours appear normal. Heart size is normal. Bones and chest wall: No suspicious bony lesions. Overlying soft tissues appear unremarkable. IMPRESSION: Worsening congestive changes. No definite focal infiltrate is seen. Reviewed by: John Buckner MD on 08/24/2020 12:06 PM AKDT Approved by: John uBckner MD on 08/24/2020 12:06 PM AKDT Station ID: [id number]
[2020-08-24 13:54] LABS: VBG PCO2 27.3 mmHg (41-51); VBG PH 7.454 (7.31-7.41); VBG PO2 44.9 mmHg (25-47); VBG TOTAL CO2 19.6 mmol/L (24-29)
[2020-08-24] MEDS ORDERED: LORazepam 2 MG/ML VIAL IVP SCH (15:45)
--- NOTE | 2020-08-24 16:51 | PHARMACY PROGRESS NOTE ---
- Best Possible Medication History Admit Date and Time: 08/23/20 1429 Processed by: Pharmacy Medication History completed: Yes Patient Interview: Completed Secondary Source(s): Physician records (PATIENT UNABLE TO PARTICIPATE IN INTERVIEW. MEDICATION RECONCILIATION DONE BASED OFF OF INSURANCE AND PROVIDER RECORDS ), Pharmacy records, Insurance records As the person ultimately responsible for medication therapy, providers are able to order a medication from an existing home medication list in [facility] via the "Reconcile Routine" prior to Confirmation of that medication by wind farm support specialist. Such practice is discouraged except when the physician, in their clinical judgment, deems that a medical need exists for a medication without regard to previous use.
[2020-08-24] MEDS ORDERED: DEXTROSE 5%-0.9% NACL 1,000 ML IV SCH (17:00)
[2020-08-24] MEDS ORDERED: SODIUM CHLORIDE FLUSH 0.9% 10 ML SYRINGE IVP PRN (18:03)
--- NOTE | 2020-08-24 18:25 | CT Report ---
PROCEDURE: Head W/O Stroke Protocol INDICATIONS: confused, says 2 words repeatedly TECHNIQUE: Noncontrast 4.5 mm thick angled axial sections acquired from the foramen magnum to the vertex, with c oronal reformats. For radiation dose reduction, the following was used: automated exposure control, adjustment of mA and/or kV according to patient size. COMPARISON: 08/22/2020. FINDINGS: Image quality: Excellent. CSF spaces: Basal cisterns are patent. No extra-axial fluid collections. Ventricles are normal in size and shape. Brain: No midline shift. No intracranial masses or hemorrhage. Travis-white matter interface is norm al. Skull and face: Calvarium and visualized facial bones are intact, without suspicious lesions. Sinuses: Mild mucosal thickening in bilateral ethmoid air cells are again seen. Minimal fluid is agai n noted within right mastoid air cells. Evidence of prior left mastoidectomy is again seen and unchan ged. IMPRESSION: No CT evidence of acute intracranial pathology. No significant changes from previous study. This study fulfills neurological imaging criteria for inclusion or exclusion of acute stroke therapie s based on available published neurological imaging guidelines. Reviewed by: John Buckner MD on 08/24/2020 5:23 PM AKDT Approved by: John Buckner MD on 08/24/2020 5:23 PM AKDT Station ID: [id number]
[2020-08-24 18:30] LABS: VBG PCO2 32.7 mmHg (41-51); VBG PH 7.412 (7.31-7.41); VBG PO2 27.6 mmHg (25-47)
[2020-08-24 18:31] LABS: VBG BASE EXCESS -3.4 mmol/L (-2 - +2); VBG TOTAL CO2 21.4 mmol/L (24-29)
[2020-08-24 18:37] LABS: BUN - BLOOD UREA NITROGEN 11 mg/dL (6-20); CALCIUM 8.5 mg/dL (8.5-10.3); CARBON DIOXIDE - CO2 19 mmol/L (21-32); CHLORIDE 102 mmol/L (101-111); CREATININE 0.6 mg/dL (0.4-1.0); GLUCOSE 212 mg/dL (70-100); MAGNESIUM 1.6 mg/dL (1.7-2.8); SODIUM 135 mmol/L (135-145)
--- NOTE | 2020-08-24 18:58 | PROVIDER PROGRESS NOTE ---
Hospitalist Cross-cover Note - Cross-Cover Note Cross-Cover Note: No brain MRI was done, the highway traffic control technician was not available for MRI. She underwent a head CT (stroke protocol) and it was compared to the head CT at admission; there were no gross abnormalities and no changes from the first head CT. Patient's labs were all carefully reviewed: Today her bicarb is 12, a VBG was obtained and pH is 7.3. Her ketones were then assessed, in today's urinalysis she has positive ketones and then serum ketones came back positive. She will be transferred to the ICU for possible diabetic ketoacidosis. She will be started on insulin drip, iv D5NS with KCl, careful monitoring of electrolytes and replacement, Electrolyte protocol in place in the ICU. Neuro checks while in ICU. Vital sign monitoring more frequently. The was updated regarding the CT of the head findings and the transfer to the ICU. CRITICAL CARE TIME: 45 minutes
[2020-08-24 18:59] LABS: KETONES, SERUM (ACETEST) NEGATIVE (NEGATIVE)
[2020-08-24] MEDS ORDERED: INSULIN REGULAR HUMAN 100 UNIT in SODIUM CHLORIDE 0.9% 100ML 99 ML IV SCH (19:00)
[2020-08-24] MEDS: D5NS W/20 MEQ KCL 1,000 ML IV SCH (19:08)
[2020-08-24 20:26] LABS: BUN - BLOOD UREA NITROGEN 11 mg/dL (6-20); CALCIUM 8.5 mg/dL (8.5-10.3); CARBON DIOXIDE - CO2 20 mmol/L (21-32); CHLORIDE 104 mmol/L (101-111); CREATININE 0.7 mg/dL (0.4-1.0); GLUCOSE 127 mg/dL (70-100); MAGNESIUM 1.7 mg/dL (1.7-2.8); SODIUM 135 mmol/L (135-145)
[2020-08-24 20:55] LABS: KETONES, SERUM (ACETEST) NEGATIVE (NEGATIVE)
[2020-08-24] MEDS: POTASSIUM CHLOR 10 MEQ/100 ML 10 MEQ/100 ML BAG IV SCH ×3 (21:08→23:16)
[2020-08-24 21:36] LABS: GLUCOSE 113 mg/dL (70-100); MAGNESIUM 1.5 mg/dL (1.7-2.8)
[2020-08-24 21:47] LABS: KETONES, SERUM (ACETEST) NEGATIVE (NEGATIVE)
[2020-08-24] MEDS ORDERED: POTASSIUM CHLORIDE 20 MEQ TABLET PO STA (23:27)
[2020-08-24] MEDS ORDERED: MAGNESIUM SULFATE 2 GRAM 2 GM/50 ML BAG IV ONE (23:46)
[2020-08-25] MEDS: SODIUM CHLORIDE FLUSH 0.9% 10 ML SYRINGE IVP SCH ×7 (02:26→23:42)
[2020-08-25] MEDS: D5NS W/20 MEQ KCL 1,000 ML IV SCH (04:30)
[2020-08-25 05:23] LABS: BASOPHILS % (AUTO) 0.2 %; HGB - HEMOGLOBIN 10.1 g/dL (12.0-16.0); LYMPHOCYTES # (AUTO) 1.5 10^3/uL (1.5-3.5); LYMPHOCYTES % (AUTO) 12.9 %; MEAN CORPUSCULAR HEMOGLOBIN 29.2 pg (27.0-31.0); MEAN CORPUSCULAR VOLUME 85.8 fL (81.0-99.0); MEAN PLATELET VOLUME 9.9 fL (7.9-10.8); MONOCYTES % (AUTO) 8.2 %; NEUTROPHILS # (AUTO) 9.3 10^3/uL (1.5-6.6); NEUTROPHILS % (AUTO) 77.9 %; PLT - PLATELET COUNT 277 10^3/uL (130-450); RED BLOOD COUNT 3.46 10^6/uL (4.20-5.40); RED CELL DISTRIBUTION WIDTH 13.3 % (12.0-15.0); WHITE BLOOD COUNT 11.9 x10^3/uL (4.8-10.8)
[2020-08-25 05:36] LABS: CALCIUM 8.3 mg/dL (8.5-10.3); CREATININE 0.6 mg/dL (0.4-1.0); PHOSPHORUS 1.3 mg/dL (2.5-4.6)
[2020-08-25] MEDS: PHENAZOPYRIDINE 100 MG TABLET PO SCH ×3 (07:45→21:03)
[2020-08-25] MEDS: PANTOPRAZOLE 40 MG TABLET PO SCH (07:45)
[2020-08-25 07:50] LABS: ALBUMIN 2.8 g/dL (3.2-5.5); MAGNESIUM 2.1 mg/dL (1.7-2.8)
--- NOTE | 2020-08-25 07:57 | PROVIDER PROGRESS NOTE ---
Subjective - Prog Note Date Prog Note Date: 08/25/20 - Subjective Subjective: Reports feeling well today. She knows she is in the hospital for urinary tract infection. Reports no chest pain or dyspnea. Denies abdominal pain. She would like an improved diet. Current Medications - Current Medications Current Medications: Active Medications Acetaminophen (Tylenol) 650 mg PO Q4HR PRN PRN Reason: Pain 1 to 4 Atorvastatin Calcium (Lipitor) 40 mg PO QPM [facility] Ciprofloxacin (Cipro) 500 mg PO BID [facility] Enoxaparin Sodium (Lovenox) 40 mg SUBQ DAILY [facility] Last Admin: 08/25/20 08:53 Dose: 40 mg Documented by: Potassium Phosphate 21 mmol/ (Sodium Chloride) 257 mls @ 64 mls/hr IV ONCE ONE Stop: 08/25/20 14:00 Insulin Aspart (Novolog) 3 - 11 unit SUBQ 0800,1200,1700,2100 [facility]; Protocol Last Admin: 08/25/20 08:51 Dose: 5 unit Documented by: Insulin Glargine (Lantus Solostar) 10 unit SUBQ QPM [facility] Lisinopril (Zestril) 5 mg PO DAILY [facility] Non-Formulary Medication (Niacin [Niacin Er]) 1,000 mg PO DAILY [facility] Non-Formulary Medication (Pregabalin [Lyrica]) 150 mg PO TID [facility] Ondansetron HCl (Zofran Inj) 4 mg IVP Q6HR PRN PRN Reason: Nausea / Vomiting Pantoprazole Sodium (Protonix) 40 mg PO QDAC [facility] Last Admin: 08/25/20 07:45 Dose: 40 mg Documented by: Phenazopyridine HCl (Pyridium) 100 mg PO TID [facility] Last Admin: 08/25/20 07:45 Dose: 100 mg Documented by: Polyethylene Glycol (Miralax) 17 gm PO DAILY [facility] Last Admin: 08/24/20 10:08 Dose: Not Given Documented by: Sodium Chloride (Normal Saline Flush 0.9%) 10 ml IVP PRN PRN PRN Reason: NEEDED PER PROVIDER ORDERS Sodium Chloride (Normal Saline Flush 0.9%) 10 ml IVP 0100,0900,1700 [facility] Last Admin: 08/25/20 08:53 Dose: 10 ml Documented by: Sodium Chloride (Normal Saline Flush 0.9%) 10 ml IVP 0100,0900,1700 [facility] Last Admin: 08/24/20 21:08 Dose: 10 ml Documented by: Sodium Chloride (Normal Saline Flush 0.9%) 10 ml IVP PRN PRN PRN Reason: NEEDED PER PROVIDER ORDERS Atorvastatin Calcium 40 mg PO QPM 08/23/20 Celecoxib 200 mg PO DAILY 08/23/20 Cyclobenzaprine [Flexeril] 10 mg PO TID PRN 08/23/20 Esomeprazole Magnesium [Nexium] 20 mg PO DAILY 08/23/20 Insulin Detemir [Levemir Flextouch] 20 unit SQ DAILY 08/23/20 Lisinopril [Prinivil] 5 mg PO DAILY 08/23/20 Metformin HCl 1,000 mg PO BID 08/23/20 Niacin [Niacin ER] 1,000 mg PO DAILY 08/23/20 Pregabalin [Lyrica] 150 mg PO TID 08/23/20 SITagliptin [Januvia] 100 mg PO DAILY 08/23/20 Objective - Vital Signs/Intake & Output Reviewed Vital Signs: Yes Vital Signs: Vital Signs x48h Temp Pulse Resp BP Pulse Ox 08/25/20 02:00 65 13 140/60 H 96 08/25/20 01:00 70 13 128/62 94 08/25/20 00:00 36.9 C 70 16 125/56 L 97 Intake & Output: Intake & Output 08/22/20 08/23/20 08/24/20 08/25/20 23:59 23:59 23:59 23:59 Intake Total 7221.864 9546.950 2737.970 1376 Output Total 385 450 Balance 5260.161 7640.950 2287.970 1376 - Objective General Appearance: positive: No acute distress, Alert Eyes Bilateral: positive: Normal inspection, Conjunctivae nml ENT: positive: ENT inspection nml, Other (Poor dentition.) Neck: positive: Nml inspection Respiratory: positive: No respiratory distress. negative: Wheezes, Rales Cardiovascular: positive: Regular rate & rhythm, No murmur. negative: Tachycardia, Bradycardia, Systolic murmur Abdomen: positive: Non-tender, No distention. negative: Tenderness, Guarding, Rebound Skin: positive: Warm, Dry Extremities: positive: Full ROM, Pedal edema (Trace edema in bilateral lower extremities.) Neurologic/Psychiatric: positive: Oriented x3, Motor nml. negative: Disoriented to person, Disoriented to place, Disoriented to time - Lab Results Fish Bones: 08/25/20 04:52 08/25/20 04:52 Other Labs: Lab Results x24hrs 08/25/20 08/25/20 08/25/20 Range/Units 04:52 04:52 04:52 WBC 11.9 H (4.8-10.8) x10^3/uL RBC 3.46 L (4.20-5.40) 10^6/uL Hgb 10.1 L (12.0-16.0) g/dL Hct 29.7 L (37.0-47.0) % MCV 85.8 (81.0-99.0) fL MCH 29.2 (27.0-31.0) pg MCHC 34.0 (32.0-36.0) g/dL RDW 13.3 (12.0-15.0) % Plt Count 277 (130-450) 10^3/uL MPV 9.9 (7.9-10.8) fL Neut # (Auto) 9.3 H (1.5-6.6) 10^3/uL Lymph # (Auto) 1.5 (1.5-3.5) 10^3/uL Cherry # (Auto) 1.0 (0.0-1.0) 10^3/uL Eos # (Auto) 0.0 (0.0-0.7) 10^3/uL Baso # (Auto) 0.0 (0.0-0.1) 10^3/uL Absolute Nucleated RBC 0.00 x10^3/uL Nucleated RBC % 0.0 /100WBC VBG pH (7.31-7.41) VBG pCO2 (41-51) mmHg VBG pO2 (25-47) mmHg VBG HCO3 (23-28) mmol/L VBG Total CO2 (24-29) mmol/L VBG O2 Saturation (60-80) % VBG Base Excess (-2 - +2) mmol/L Sodium 137 (135-145) mmol/L Potassium 3.2 L (3.5-5.0) mmol/L Chloride 109 (101-111) mmol/L Carbon Dioxide 19 L (21-32) mmol/L Anion Gap 9.0 (6-13) BUN 10 (6-20) mg/dL Creatinine 0.6 (0.4-1.0) mg/dL Estimated GFR (MDRD) 102 (>89) Glucose 209 H (70-100) mg/dL Estimat Average Glucose (70-100) mg/dL Hemoglobin A1c % (4.27-6.07) % Lactic Acid (0.5-2.2) mmol/L Calcium 8.3 L (8.5-10.3) mg/dL Phosphorus 1.3 L (2.5-4.6) mg/dL Magnesium 2.1 (1.7-2.8) mg/dL Albumin 2.8 L (3.2-5.5) g/dL Nasal Screen MRSA (PCR) (NEGATIVE) Serum Ketones (NEGATIVE) 08/24/20 08/24/20 08/24/20 Range/Units 21:20 20:05 18:57 WBC (4.8-10.8) x10^3/uL RBC (4.20-5.40) 10^6/uL Hgb (12.0-16.0) g/dL Hct (37.0-47.0) % MCV (81.0-99.0) fL MCH (27.0-31.0) pg MCHC (32.0-36.0) g/dL RDW (12.0-15.0) % Plt Count (130-450) 10^3/uL MPV (7.9-10.8) fL Neut # (Auto) (1.5-6.6) 10^3/uL Lymph # (Auto) (1.5-3.5) 10^3/uL Cherry # (Auto) (0.0-1.0) 10^3/uL Eos # (Auto) (0.0-0.7) 10^3/uL Baso # (Auto) (0.0-0.1) 10^3/uL Absolute Nucleated RBC x10^3/uL Nucleated RBC % /100WBC VBG pH (7.31-7.41) VBG pCO2 (41-51) mmHg VBG pO2 (25-47) mmHg VBG HCO3 (23-28) mmol/L VBG Total CO2 (24-29) mmol/L VBG O2 Saturation (60-80) % VBG Base Excess (-2 - +2) mmol/L Sodium 135 (135-145) mmol/L Potassium 2.7 L (3.5-5.0) mmol/L Chloride 104 (101-111) mmol/L Carbon Dioxide 20 L (21-32) mmol/L Anion Gap 11.0 (6-13) BUN 11 (6-20) mg/dL Creatinine 0.7 (0.4-1.0) mg/dL Estimated GFR (MDRD) 85 L (>89) Glucose 113 H 127 H (70-100) mg/dL Estimat Average Glucose (70-100) mg/dL Hemoglobin A1c % (4.27-6.07) % Lactic Acid (0.5-2.2) mmol/L Calcium 8.5 (8.5-10.3) mg/dL Phosphorus (2.5-4.6) mg/dL Magnesium 1.5 L 1.7 (1.7-2.8) mg/dL Albumin (3.2-5.5) g/dL Nasal Screen MRSA (PCR) NEGATIVE (NEGATIVE) Serum Ketones NEGATIVE NEGATIVE (NEGATIVE) 08/24/20 08/24/20 08/24/20 Range/Units 18:25 18:25 16:55 WBC (4.8-10.8) x10^3/uL RBC (4.20-5.40) 10^6/uL Hgb (12.0-16.0) g/dL Hct (37.0-47.0) % MCV (81.0-99.0) fL MCH (27.0-31.0) pg MCHC (32.0-36.0) g/dL RDW (12.0-15.0) % Plt Count (130-450) 10^3/uL MPV (7.9-10.8) fL Neut # (Auto) (1.5-6.6) 10^3/uL Lymph # (Auto) (1.5-3.5) 10^3/uL Cherry # (Auto) (0.0-1.0) 10^3/uL Eos # (Auto) (0.0-0.7) 10^3/uL Baso # (Auto) (0.0-0.1) 10^3/uL Absolute Nucleated RBC x10^3/uL Nucleated RBC % /100WBC VBG pH 7.412 H (7.31-7.41) VBG pCO2 32.7 L (41-51) mmHg VBG pO2 27.6 (25-47) mmHg VBG HCO3 20.4 L (23-28) mmol/L VBG Total CO2 21.4 L (24-29) mmol/L VBG O2 Saturation 57.4 L (60-80) % VBG Base Excess -3.4 L (-2 - +2) mmol/L Sodium 135 (135-145) mmol/L Potassium 2.7 L (3.5-5.0) mmol/L Chloride 102 (101-111) mmol/L Carbon Dioxide 19 L (21-32) mmol/L Anion Gap 14.0 H (6-13) BUN 11 (6-20) mg/dL Creatinine 0.6 (0.4-1.0) mg/dL Estimated GFR (MDRD) 102 (>89) Glucose 212 H (70-100) mg/dL Estimat Average Glucose (70-100) mg/dL Hemoglobin A1c % (4.27-6.07) % Lactic Acid 1.2 (0.5-2.2) mmol/L Calcium 8.5 (8.5-10.3) mg/dL Phosphorus (2.5-4.6) mg/dL Magnesium 1.6 L (1.7-2.8) mg/dL Albumin (3.2-5.5) g/dL Nasal Screen MRSA (PCR) (NEGATIVE) Serum Ketones NEGATIVE (NEGATIVE) 08/24/20 08/24/20 08/24/20 Range/Units 16:55 13:45 05:34 WBC (4.8-10.8) x10^3/uL RBC (4.20-5.40) 10^6/uL Hgb (12.0-16.0) g/dL Hct (37.0-47.0) % MCV (81.0-99.0) fL MCH (27.0-31.0) pg MCHC (32.0-36.0) g/dL RDW (12.0-15.0) % Plt Count (130-450) 10^3/uL MPV (7.9-10.8) fL Neut # (Auto) (1.5-6.6) 10^3/uL Lymph # (Auto) (1.5-3.5) 10^3/uL Cherry # (Auto) (0.0-1.0) 10^3/uL Eos # (Auto) (0.0-0.7) 10^3/uL Baso # (Auto) (0.0-0.1) 10^3/uL Absolute Nucleated RBC x10^3/uL Nucleated RBC % /100WBC VBG pH 7.454 H (7.31-7.41) VBG pCO2 27.3 L (41-51) mmHg VBG pO2 44.9 (25-47) mmHg VBG HCO3 18.7 L (23-28) mmol/L VBG Total CO2 19.6 L (24-29) mmol/L VBG O2 Saturation 84.1 H (60-80) % VBG Base Excess -4.0 L (-2 - +2) mmol/L Sodium (135-145) mmol/L Potassium (3.5-5.0) mmol/L Chloride (101-111) mmol/L Carbon Dioxide (21-32) mmol/L Anion Gap (6-13) BUN (6-20) mg/dL Creatinine (0.4-1.0) mg/dL Estimated GFR (MDRD) (>89) Glucose (70-100) mg/dL Estimat Average Glucose 151 H (70-100) mg/dL Hemoglobin A1c % 6.9 H (4.27-6.07) % Lactic Acid (0.5-2.2) mmol/L Calcium (8.5-10.3) mg/dL Phosphorus (2.5-4.6) mg/dL Magnesium (1.7-2.8) mg/dL Albumin (3.2-5.5) g/dL Nasal Screen MRSA (PCR) (NEGATIVE) Serum Ketones SMALL H (NEGATIVE) ABX Reporting Has patient been on IV antibiotics over the past 48 hours?: Yes Assessment/Plan - Problem List (1) Altered mental status Impression: This appears to have resolved. She is oriented to self and location and is aware she will the hospital and why she is here. Repeat CT of the head performed yesterday was unremarkable. MRI has been ordered for today and is pending. At this time we will continue to monitor her neurologic status. We will resume her home Lyrica dose and monitor her closely. Avoid any other sedatives. Delirium precautions. Follow-up MRI of the brain. Qualifiers: Altered mental status type: unspecified Qualified Code(s): R41.82 - Altered mental status, unspecified (2) E. coli UTI Impression: Her urine culture grew E. coli that is pansensitive. She has been treated with ceftriaxone. We will switch her to oral ciprofloxacin and treat her for at least 5 to 7 days for a complicated urinary tract infection given her altered mental status during this hospitalization. Her white count continues to improve. (3) COPD (chronic obstructive pulmonary disease) Impression: This is stable and not in exacerbation. She is not on any inhalers at home. We will continue with albuterol as needed during his hospitalization. (4) Diabetes mellitus Impression: Glucose elevated this morning at over 200. We will discontinue the dextrose infusion. We will continue her current Lantus dose. We will continue with sliding scale as well. Placed on a carb controlled diet. We will resume her home Januvia and metformin on discharge. Qualifiers: Diabetes mellitus type: type 2 (5) Fibromyalgia Impression: Stable. We will continue her home Lyrica. (6) Hx of essential hypertension Impression: Blood pressure is well controlled. We will continue her home lisinopril.
[2020-08-25] MEDS ORDERED: POTASSIUM CHLORIDE 20 MEQ TABLET PO ONE (08:00)
[2020-08-25] MEDS: INSULIN ASPART 300 UNIT/3 ML PEN SUBQ SCH ×4 (08:51→21:03)
[2020-08-25] MEDS: cefTRIAXone 2 GM in SODIUM CHLORIDE 0.9% MINIBAG 100 ML IV SCH (08:52)
[2020-08-25] MEDS: ENOXAPARIN 40 MG/0.4 ML SYRINGE SUBQ SCH (08:53)
[2020-08-25] MEDS ORDERED: ALBUTEROL NEB 2.5 MG/3 ML INH PRN (09:25)
[2020-08-25] MEDS: polyethylene glycoL 3350 17 GM PACKET PO SCH (09:52)
[2020-08-25] MEDS ORDERED: POTASSIUM PHOSPHATE 21 MMOL in SODIUM CHLORIDE 0.9% 250 ML IV ONE (10:00)
--- NOTE | 2020-08-25 11:19 | MRI Report ---
PROCEDURE: Brain W/O INDICATIONS: Stroke suspected TECHNIQUE: Noncontrast axial T1 spin echo, axial T2 fast spin echo, sagittal and axial FLAIR, coronal T2 fast sp in echo, axial gradient echo, axial diffusion and ADC through the brain. COMPARISON: None. FINDINGS: Image quality: Excellent. CSF Spaces: Basal cisterns are patent. No extra-axial fluid collections. Ventricles are normal in size and shape. Brain: There is no brain parenchymal restricted diffusion to indicate a recent ischemia. No findings of mass effect or midline shift. The major intracranial vascular flow-related signal voids are mainta ined. There is, however some narrowing of the left sigmoid sinus as it is traverses an extra-axial si gnal abnormality in the left cerebellopontine angle (with differential considerations of postsurgical packing material, scarring/granulation tissue, or less likely intracranial abscess and thrombophlebi tis surrounding the left sigmoid sinus. Additionally, this could potentially represent recurrent chol esteatoma within the intracranial compartment if the surgery was originally performed for cholesteato ma. Skull and face: Left mastoidectomy changes. Bilateral sphenoid sinus mucosal thickening with small fl uid level on the right. Mild anterior ethmoid air cell and maxillary sinus mucosal thickening bilater ally. Orbital structures unremarkable. IMPRESSION: No acute infarct or other acute brain parenchymal process identified. 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 If there is clinical concern for acute intracranial infection, post contr ast MRI would be recommended. CT of the temporal bones may also be considered for further evaluation if clinically warranted. Correlation with the patient's clinical history and any prior outside imagin g would be helpful. Reviewed by: Haroldo Cosme MD on 08/25/2020 11:18 AM PDT Approved by: Haroldo Cosme MD on 08/25/2020 11:18 AM PDT Station ID: [id number]
[2020-08-25] MEDS: PREGABALIN 100 MG CAPSULE PO SCH ×2 (14:02→21:03)
[2020-08-25] MEDS: PREGABALIN 25 MG CAPSULE PO SCH ×2 (14:02→21:09)
[2020-08-25] MEDS ORDERED: ATORVASTATIN 40 MG TABLET PO SCH (21:00)
[2020-08-25] MEDS ORDERED: INSULIN GLARGINE 300 UNIT/3 ML PEN SUBQ SCH (21:00)
[2020-08-26 05:24] LABS: CALCIUM 8.6 mg/dL (8.5-10.3); CREATININE 0.4 mg/dL (0.4-1.0)
[2020-08-26] MEDS: PREGABALIN 25 MG CAPSULE PO SCH (06:16)
[2020-08-26] MEDS: PREGABALIN 100 MG CAPSULE PO SCH (06:16)
[2020-08-26] MEDS: PHENAZOPYRIDINE 100 MG TABLET PO SCH (06:17)
[2020-08-26] MEDS: PANTOPRAZOLE 40 MG TABLET PO SCH (06:21)
[2020-08-26 07:59] LABS: BASOPHILS % (AUTO) 0.3 %; EOSINOPHILS # (AUTO) 0.1 10^3/uL (0.0-0.7); HGB - HEMOGLOBIN 10.1 g/dL (12.0-16.0); LYMPHOCYTES # (AUTO) 2.3 10^3/uL (1.5-3.5); LYMPHOCYTES % (AUTO) 24.8 %; MEAN CORPUSCULAR HEMOGLOBIN 29.1 pg (27.0-31.0); MEAN CORPUSCULAR VOLUME 88.2 fL (81.0-99.0); MONOCYTES # (AUTO) 0.9 10^3/uL (0.0-1.0); MONOCYTES % (AUTO) 9.5 %; NEUTROPHILS % (AUTO) 63.5 %; PLT - PLATELET COUNT 269 10^3/uL (130-450); RED BLOOD COUNT 3.47 10^6/uL (4.20-5.40); RED CELL DISTRIBUTION WIDTH 13.7 % (12.0-15.0); WHITE BLOOD COUNT 9.4 x10^3/uL (4.8-10.8)
[2020-08-26 08:11] LABS: PHOSPHORUS 2.2 mg/dL (2.5-4.6)
--- NOTE | 2020-08-26 08:23 | Discharge Plan ---
Discharge Plan Problem Reviewed?: Yes Disposition: Home, Self Care Condition: Stable Prescriptions: Albuterol Sulfate [Albuterol Sulfate Hfa] 8.5 gm IH Q6HR PRN #4 [id number] PRN Reason: Dyspnea Ciprofloxacin [Cipro] 500 mg PO BID 4 Days #16 tablet Diet: Diabetic Activity Restrictions: Activity as Tolerated Health Concerns: You were admitted to the hospital because you had a urinary tract infection and this made you more confused as well. You were treated with antibiotics and IV fluids with improvement in her symptoms. You had a CT scan of her head and MRI which did not show a stroke or any signs of infection. Plan of Treatment: Please take the antibiotics as prescribed for 4 more days. There were no other changes made to your medications. Assessment: The patient expressed understanding of the treatment plan. Additional Instructions or Follow Up instructions: Please follow-up with your primary care provider in 1 to 2 weeks. No Smoking: If you smoke, Please STOP! Call for help. Follow-up with: Rupal Iqbal MD [Primary Care Provider] -
--- NOTE | 2020-08-26 08:26 | DISCHARGE SUMMARY ---
"Discharge Summary Admit Date: 08/22/20 Discharge Date: 08/26/20 Discharging Provider: Lawrence Mathis Primary Care Provider: Rupal Iqbal Code Status: Attempt Resuscitation Condition at Discharge: Stable Discharge Disposition: 01 Home, Self Care - DIAGNOSES Admission Diagnoses: UTI Diabetes mellitus Hypertension Hyperlipidemia COPD Fibromyalgia Discharge Diagnoses with Status of Each Condition: Altered mental status - resolved. E. coli UTI - improved. COPD - stable. Diabetes mellitus - stable. Fibromyalgia - stable. Hypertension - stable. - HPI History of Present Illness: H&P per Dr. Luong: Patient is a 60-year-old female with history of COPD, fibromyalgia, arthritis, hypertension, diabetes mellitus on Levemir, hyperlipidemia who presented to the ED today with increased somnolence. She was brought to the emergency department by her who reported that the patient has been sleeping most of the day since yesterday. She has also been unable to do much. The patient has com plained of increased urinary frequency over the past week. In the ED work-up included a CBC which showed a WBC of 19. She also had a urinary analysis done which was strongly indicated of a UTI. It was positive for nitrites, urine had 11-25 WBCs, many bacteria and WBC clumps. - CONSULTS | PROCEDURES Procedures: CT of the head without contrast on August 22 showed no acute intracranial abnormalities. Repeat CT of the head on August 24 showed no acute abnormalities and no significant changes compared to prior CT. MRI of the brain on August 25 showed no acute infarct or significant abnormalities. There was a nonspecific signal abnormality left cerebral pontine angle which was thought to be chronic related to her prior mastoidectomy. - HOSPITAL COURSE Hospital Course: She was admitted to the floor for altered mental status believed to be secondary to urinary tract infection. She was continued on Zosyn IV. Her home narcotics and sedatives were held given her altered mental status. The following day, she remained quite lethargic despite IV hydration and antibiotics. Her urine culture grew E. coli and initial blood cultures remain negative to date. Her antibiotics were changed to ceftriaxone given her E. coli was pansensitive. Despite adequately treating her urinary tract infection, she remained quite altered although she was less lethargic. She was confused and was uncooperative and sundowning. Repeat labs on hospital day 3 showed a decreased bicarbonate and elevated anion gap. Her blood glucose was slightly elevated and serum ketones were checked which were positive in a small amount. There was concern for DKA and she was transferred to intensive care unit for IV insulin. She was only on IV insulin for a brief period of time before being transitioned to subcutaneous insulin a few hours later as ketones became negative and her bicarbonate improved and her anion gap closed. Repeat CT of the head was obtained which was unremarkable. MRI of the brain was also obtained which was unremarkable. The patient's neurologic status improved and she returned to her baseline the following day. Repeat blood cultures had been obtained given she had not improved initially from a neurologic standpoint and these also remain negative. She was ultimately discharged on oral ciprofloxacin to complete 7 days of treatment for complicated urinary tract infection. She returned to her baseline neurologic status prior to discharge. There were no other changes made to her medications. She was asked to follow-up with her primary care provider in 1 to 2 weeks. - ALLERGIES Allergies/Adverse Reactions: Allergies Allergy/AdvReac Type Severity Reaction Status Date / Time azithromycin Allergy Unknown Verified 08/22/20 22:59 [From [employer] [facility]-Donald] - MEDICATIONS Home Medications: Ambulatory Orders Medication Instructions Recorded Confirmed Atorvastatin Calcium 40 mg PO QPM 08/23/20 08/24/20 Celecoxib 200 mg PO DAILY 08/23/20 08/24/20 Cyclobenzaprine [Flexeril] 10 mg PO TID PRN 08/23/20 08/24/20 Esomeprazole Magnesium [Nexium] 20 mg PO DAILY 08/23/20 08/24/20 Insulin Detemir [Levemir Flextouch] 20 unit SQ DAILY 08/23/20 08/24/20 Lisinopril [Prinivil] 5 mg PO DAILY 08/23/20 08/24/20 Metformin HCl 1,000 mg PO BID 08/23/20 08/24/20 Niacin [Niacin ER] 1,000 mg PO DAILY 08/23/20 08/24/20 Pregabalin [Lyrica] 150 mg PO TID 08/23/20 08/24/20 SITagliptin [Januvia] 100 mg PO DAILY 08/23/20 08/24/20 Albuterol Sulfate [Albuterol 8.5 gm IH Q6HR PRN #4 hfa.[id number].[id number] 08/26/20 Sulfate Hfa] Ciprofloxacin [Cipro] 500 mg PO BID 4 Days #16 tablet 08/26/20 - PHYSICAL EXAM AT DISCHARGE General Appearance: positive: No acute distress, Alert Eyes Bilateral: positive: Normal inspection, Conjunctivae nml ENT: positive: ENT inspection nml, Other (Poor dentition) Neck: positive: Nml inspection Respiratory: positive: No respiratory distress. negative: Wheezes, Rales Cardiovascular: positive: Regular rate & rhythm, No murmur. negative: Tachycardia, Bradycardia, Systolic murmur Abdomen: positive: Non-tender, No distention. negative: Tenderness, Guarding, Rebound Skin: positive: Warm, Dry Extremities: positive: Full ROM, No pedal edema Neurologic/Psychiatric: positive: Motor nml. negative: Disoriented to person, Disoriented to place, Disoriented to time, Facial droop, Slurred/abnml speech Physical Exam Other/Comments: Vital Signs (72 hours) 08/24/20 08/24/20 08/24/20 18:55 19:00 21:00 Temperature Heart Rate Heart Rate [ 67 60 62 Brachial] Respiratory 22 19 12 Rate Blood Pressure 148/78 H 157/66 H [Right Brachial artery] O2 Saturation 100 99 99 08/24/20 08/24/20 08/25/20 22:00 23:03 00:00 Temperature 36.9 C Heart Rate Heart Rate [ 64 72 70 Brachial] Respiratory 13 16 16 Rate Blood Pressure 151/69 H 140/57 H 125/56 L [Right Brachial artery] O2 Saturation 97 99 97 08/25/20 08/25/20 08/25/20 01:00 02:00 03:00 Temperature Heart Rate Heart Rate [ 70 65 64 Brachial] Respiratory 13 13 13 Rate Blood Pressure 128/62 140/60 H 130/66 [Right Brachial artery] O2 Saturation 94 96 95 08/25/20 08/25/20 08/25/20 04:00 05:00 06:00 Temperature Heart Rate Heart Rate [ 70 74 59 L Brachial] Respiratory 20 18 14 Rate Blood Pressure 132/60 H 123/62 128/64 [Right Brachial artery] O2 Saturation 96 93 96 08/25/20 08/25/20 08/25/20 07:00 09:00 10:54 Temperature 36.9 C Heart Rate 65 Heart Rate [ 62 65 Brachial] Respiratory 11 L 13 18 Rate Blood Pressure 117/65 [Right Brachial artery] O2 Saturation 97 97 96 08/25/20 08/25/20 08/25/20 11:00 13:00 16:15 Temperature 36.6 C 36.6 C 36.5 C Heart Rate Heart Rate [ 75 78 66 Brachial] Respiratory 18 20 18 Rate Blood Pressure 133/80 H 140/89 H 150/81 H [Right Brachial artery] O2 Saturation 99 98 98 08/25/20 08/25/20 08/26/20 19:37 23:45 04:45 Temperature 36.5 C 36.6 C 36.7 C Heart Rate Heart Rate [ 82 78 80 Brachial] Respiratory 18 16 16 Rate Blood Pressure 133/65 H 152/77 H 124/62 [Right Brachial artery] O2 Saturation 98 100 99 08/26/20 08/26/20 08/26/20 08:00 08:49 12:16 Temperature 36.6 C 36.8 C Heart Rate 77 Heart Rate [ 76 76 Brachial] Respiratory 18 16 22 Rate Blood Pressure 139/61 H 153/78 H [Right Brachial artery] O2 Saturation 97 98 - LABS Result Diagrams: 08/26/20 05:00 08/26/20 05:00 Other Lab Results: Microbiology 08/24/20 14:25 Blood Blood Culture - Preliminary NO GROWTH AFTER 2 DAYS 08/24/20 13:45 Blood Blood Culture - Preliminary NO GROWTH AFTER 2 DAYS 08/22/20 20:08 Blood - Left Arm Blood Culture - Preliminary NO GROWTH AFTER 2 DAYS 08/22/20 20:08 Blood Blood Culture - Preliminary NO GROWTH AFTER 2 DAYS 08/22/20 17:40 Urine,Catheterized Urine Culture - Final Escherichia Coli - DIAGNOSTIC IMAGING Diagnostic Imaging Results: Final report reviewed - FOLLOW UP Follow Up: She was asked to follow-up with her primary care provider in 1 to 2 weeks. - TIME SPENT Time Spent in Discharge (Minutes): 32"
[2020-08-26] MEDS ORDERED: CIPROFLOXACIN 250 MG TABLET PO SCH (09:00)
[2020-08-26] MEDS ORDERED: NIACIN ER 500 MG TABLET PO SCH (09:00)
[2020-08-26] MEDS ORDERED: lisinopriL 5 MG TABLET PO SCH (09:00)
[2020-08-26] MEDS: INSULIN ASPART 300 UNIT/3 ML PEN SUBQ SCH ×2 (10:51→12:21)
[2020-08-26] MEDS: SODIUM CHLORIDE FLUSH 0.9% 10 ML SYRINGE IVP SCH ×2 (12:14→12:18)
[2020-08-26] MEDS: ENOXAPARIN 40 MG/0.4 ML SYRINGE SUBQ SCH (12:14)
[2020-08-26 12:16] VITALS: BP 153/78
[2020-08-26] MEDS: polyethylene glycoL 3350 17 GM PACKET PO SCH (12:17)
== END 2020-08-26 14:10 | disposition home or self-care (01) | DRG 689 ==
LOC: EDUNIT# → ED 16:28 → MS2 21:00 → OBSVTOIN 08-23 14:29 → ICU 08-24 18:43 → MS2 08-25 15:47
PROVIDERS: ADMIT Internal Medicine; ATTEND Internal Medicine
DX: N30.00 Acute cystitis without hematuria (principal); E11.9 Type 2 diabetes mellitus without complications; E11.10 Type 2 diabetes mellitus with ketoacidosis without coma; F05 Delirium due to known physiological condition; B96.20 Unspecified Escherichia coli [E. coli] as the cause of diseases classified elsewhere; E86.0 Dehydration; E78.5 Hyperlipidemia, unspecified; I10 Essential (primary) hypertension; J44.9 Chronic obstructive pulmonary disease, unspecified; M79.7 Fibromyalgia; F17.210 Nicotine dependence, cigarettes, uncomplicated; M19.90 Unspecified osteoarthritis, unspecified site; H91.92 Unspecified hearing loss, left ear; Z79.4 Long term (current) use of insulin; Z79.899 Other long term (current) drug therapy
CPT/HCPCS: 36415; 51701; 70450; 70551; 71045; 74177; 80048; 80053; 81001; 82009; 82040; 82803; 82947; 83036; 83605; 83690; 83735; 84100; 84439; 84443; 84484; 85025; 87040; 87086; 87150; 87181; 93005; 94640; 96361; 96365; 96366; 96367; 96368; 96372; 99285; A9270; G0378; J0131; J1200; J1650; J1815; J2060; J3370; Q9967; 80306; 80307; 80320; 80329; 81002; 81003

== ENCOUNTER 2020-12-14 16:24 | Emergency (ER) | payer MEDICARE, MEDICAID ==
--- NOTE | 2020-12-14 16:47 | ED Physician Documentation ---
PD HPI ALTERED MENTAL STATUS - Stated complaint Stated Complaint: WEAK, CONFUSION - Chief complaint Chief Complaint: Neuro - History obtained from History obtained from: Patient, Family - Additional information Additional information: This is a 60-year-old woman who presents with confusion. Much of the history is from the by phone since because of her confusion she is difficult to get an accurate history from. In July of last year she was admitted with similar symptoms, it was attributed to a UTI. She was here for 4 days on IV antibiotics. Per the she did clear completely. She was diagnosed with coronavirus on the first of this year and since then has had "good days and bad days" with what sounds like a delirium sometimes being very confused and sometimes not. The patient has no specific complaints and at one time feels like she is not confused, but another time she feels like she is confused. She is alert and oriented to person and place, but not time. She is able to state that it is November, but thinks it is the fourth. Gets the year right once, then gets it wrong. says she had difficulty walking and kind of collapsed onto the floor the other night without injury. No syncope. She is on a couple of medications that could cause neuro suppression including gabapentin and Flexeril. But per the these have not changed recently. Review of Systems Unable to obtain: Confused PD PAST MEDICAL HISTORY - Past Medical History Cardiovascular: Hypertension, High cholesterol Respiratory: COPD Neuro: None Endocrine/Autoimmune: Type 2 diabetes GI: None : None Psych: Depression Musculoskeletal: Osteoarthritis, Fibromyalgia Derm: None - Past Surgical History Ortho: Carpal Tunnel surgery /TELEVISION ENGINEER: Tubal ligation, Hysterectomy HEENT: Cochlear implant - Present Medications Home Medications: Ambulatory Orders Medication Instructions Recorded Confirmed Atorvastatin Calcium 40 mg PO QPM 08/23/20 12/14/20 Celecoxib 200 mg PO DAILY 08/23/20 12/14/20 Cyclobenzaprine [Flexeril] 10 mg PO TID PRN 08/23/20 12/14/20 Esomeprazole Magnesium [Nexium] 20 mg PO DAILY 08/23/20 12/14/20 Insulin Detemir [Levemir Flextouch] 20 unit SQ DAILY 08/23/20 08/24/20 Lisinopril [Prinivil] 5 mg PO DAILY 08/23/20 12/14/20 Metformin HCl 1,000 mg PO BID 08/23/20 12/14/20 Niacin [Niacin ER] 1,000 mg PO DAILY 08/23/20 12/14/20 Pregabalin [Lyrica] 150 mg PO TID 08/23/20 12/14/20 SITagliptin [Januvia] 100 mg PO DAILY 08/23/20 12/14/20 Albuterol Sulfate [Albuterol 8.5 gm IH Q6HR PRN #4 [email or web address] 08/26/20 12/14/20 Sulfate Hfa] Ciprofloxacin [Cipro] 500 mg PO BID 4 Days #16 tablet 08/26/20 - Allergies Allergies/Adverse Reactions: Allergies Allergy/AdvReac Type Severity Reaction Status Date / Time azithromycin Allergy Unknown Verified 08/22/20 22:59 [From Zithromax Z-Donald] - Social History Smoking Status: Current every day smoker PD ED PE NORMAL - Vitals Vital signs reviewed: Yes - General General: No acute distress, Other (Slow, slurred mumbling speech, A/O x 1-2) - HEENT HEENT: PERRL, Other (very course nystagmus bilateral) - Neck Neck: Supple, no meningeal sign, No bony TTP - Cardiac Cardiac: RRR, No murmur - Respiratory Respiratory: No respiratory distress, Clear bilaterally - Abdomen Abdomen: Soft, Non tender - Back Back: No CVA TTP, No spinal TTP - Derm Derm: Normal color, Warm and dry - Extremities Extremities: No edema, No calf tenderness / cord - Neuro Neuro: No motor deficit, No sensory deficit, Normal speech Eye Opening: Spontaneous Motor: Obeys Commands Verbal: Confused GCS Score: 14 Results - Vitals Vitals: Vital Signs - 24 hr 12/14/20 12/14/20 12/14/20 16:25 17:42 17:58 Temperature 36.6 C Heart Rate 125 H 113 H 112 H Respiratory 18 17 11 L Rate Blood Pressure 139/83 H 97/69 108/72 O2 Saturation 99 100 99 12/14/20 12/14/20 12/14/20 18:35 19:00 19:30 Temperature 36.7 C 36.8 C Heart Rate 77 95 97 Respiratory 16 16 16 Rate Blood Pressure 108/72 109/71 102/73 O2 Saturation 99 98 98 12/14/20 12/14/20 12/14/20 20:00 20:30 21:00 Temperature 36.8 C 36.8 C 36.8 C Heart Rate 83 103 H 89 Respiratory 18 18 14 Rate Blood Pressure 106/71 105/73 98/69 O2 Saturation 97 97 98 12/14/20 12/14/20 12/14/20 21:30 22:00 22:30 Temperature 36.8 C 36.8 C Heart Rate 108 H 103 H 100 Respiratory 18 20 12 Rate Blood Pressure 99/65 99/65 96/65 O2 Saturation 100 98 97 12/14/20 23:00 Temperature 36.9 C Heart Rate 102 H Respiratory 18 Rate Blood Pressure 107/65 O2 Saturation 100 Oxygen O2 Source Room air - EKG (time done) 1648 Rate: Rate (enter#) (115) Rhythm: Sinus tachycardia [place]: Normal Intervals: Normal [place] QRS: Normal Ischemia: Q waves (inferior) Computer interpretation: Agree with computer - Labs Labs: Laboratory Tests 12/14/20 12/14/20 12/14/20 16:43 16:50 16:50 WBC 13.9 H RBC 4.44 Hgb 12.9 Hct 39.3 MCV 88.5 MCH 29.1 MCHC 32.8 RDW 14.5 Plt Count 358 MPV 9.8 Neut # (Auto) 8.8 H Lymph # (Auto) 4.1 H [place] # (Auto) 0.8 Eos # (Auto) 0.1 Baso # (Auto) 0.1 Absolute Nucleated RBC 0.00 Nucleated RBC % 0.0 Sodium 136 Potassium 4.3 Chloride 99 L Carbon Dioxide 25 Anion Gap 12.0 BUN 25 H Creatinine 0.9 Estimated GFR (MDRD) 64 L Glucose 175 H POC Whole Bld Glucose 164 H Lactic Acid Calcium 9.7 Magnesium 1.5 L Total Bilirubin 0.7 AST 16 ALT 13 Alkaline Phosphatase 77 Ammonia Total Protein 7.5 Albumin 3.9 Globulin 3.6 Albumin/Globulin Ratio 1.1 Urine Color Urine Clarity Urine pH Ur Specific [place] Urine Protein Urine Glucose (UA) Urine Ketones Urine Occult Blood Urine Nitrite Urine Bilirubin Urine Urobilinogen Ur Leukocyte Esterase Urine RBC Urine WBC Urine WBC Clumps Ur Squamous Epith Cells Urine Crystals Urine Bacteria Ur Microscopic Review Urine Culture Comments Nasal Adenovirus (PCR) Nasal B. parapertussis DNA (PCR) Nasal Coronavir 229E PCR Nasal Coronavir HKU1 PCR Nasal Coronavir NL63 PCR Nasal Coronavir OC43 PCR Nasal Enterovir/Rhinovir PCR Nasal Influenza B PCR Nasal Influenza A PCR Nasal Parainfluen 1 PCR Nasal Parainfluen 2 PCR Nasal Parainfluen 3 PCR Nasal Parainfluen 4 PCR Nasal RSV (PCR) Nasal B.pertussis DNA PCR Nasal C.pneumoniae (PCR) Bryce Human Metapneumo PCR Nasal M.pneumoniae (PCR) Nasal SARS-CoV-2 (PCR) Ethyl Alcohol < 5.0 12/14/20 12/14/20 12/14/20 16:50 16:50 16:51 WBC RBC Hgb Hct MCV MCH MCHC RDW Plt Count MPV Neut # (Auto) Lymph # (Auto) [place] # (Auto) Eos # (Auto) Baso # (Auto) Absolute Nucleated RBC Nucleated RBC % Sodium Potassium Chloride Carbon Dioxide Anion Gap BUN Creatinine Estimated GFR (MDRD) Glucose POC Whole Bld Glucose Lactic Acid 2.8 H Calcium Magnesium Total Bilirubin AST ALT Alkaline Phosphatase Ammonia < 10.0 Total Protein Albumin Globulin Albumin/Globulin Ratio Urine Color Urine Clarity Urine pH Ur Specific [place] Urine Protein Urine Glucose (UA) Urine Ketones Urine Occult Blood Urine Nitrite Urine Bilirubin Urine Urobilinogen Ur Leukocyte Esterase Urine RBC Urine WBC Urine WBC Clumps Ur Squamous Epith Cells Urine Crystals Urine Bacteria Ur Microscopic Review Urine Culture Comments Nasal Adenovirus (PCR) NOT DETECTED Nasal B. parapertussis DNA (PCR) NOT DETECTED Nasal Coronavir 229E PCR NOT DETECTED Nasal Coronavir HKU1 PCR NOT DETECTED Nasal Coronavir NL63 PCR NOT DETECTED Nasal Coronavir OC43 PCR NOT DETECTED Nasal Enterovir/Rhinovir PCR NOT DETECTED Nasal Influenza B PCR NOT DETECTED Nasal Influenza A PCR NOT DETECTED Nasal Parainfluen 1 PCR NOT DETECTED Nasal Parainfluen 2 PCR NOT DETECTED Nasal Parainfluen 3 PCR NOT DETECTED Nasal Parainfluen 4 PCR NOT DETECTED Nasal RSV (PCR) NOT DETECTED Nasal B.pertussis DNA PCR NOT DETECTED Nasal C.pneumoniae (PCR) NOT DETECTED Bryce Human Metapneumo PCR NOT DETECTED Nasal M.pneumoniae (PCR) NOT DETECTED Nasal SARS-CoV-2 (PCR) DETECTED A Ethyl Alcohol 12/14/20 17:15 WBC RBC Hgb Hct MCV MCH MCHC RDW Plt Count MPV Neut # (Auto) Lymph # (Auto) [place] # (Auto) Eos # (Auto) Baso # (Auto) Absolute Nucleated RBC Nucleated RBC % Sodium Potassium Chloride Carbon Dioxide Anion Gap BUN Creatinine Estimated GFR (MDRD) Glucose POC Whole Bld Glucose Lactic Acid Calcium Magnesium Total Bilirubin AST ALT Alkaline Phosphatase Ammonia Total Protein Albumin Globulin Albumin/Globulin Ratio Urine Color YELLOW Urine Clarity CLEAR Urine pH 6.0 Ur Specific [place] 1.025 Urine Protein TRACE Urine Glucose (UA) NEGATIVE Urine Ketones TRACE Urine Occult Blood NEGATIVE Urine Nitrite POSITIVE H Urine Bilirubin NEGATIVE Urine Urobilinogen 0.2 (NORMAL) Ur Leukocyte Esterase SMALL H Urine RBC 6-10 H Urine WBC >25 H Urine WBC Clumps PRESENT Ur Squamous Epith Cells RARE Squamous Urine Crystals 3-5 Calcium Oxalate Urine Bacteria Many H Ur Microscopic Review INDICATED Urine Culture Comments INDICATED Nasal Adenovirus (PCR) Nasal B. parapertussis DNA (PCR) Nasal Coronavir 229E PCR Nasal Coronavir HKU1 PCR Nasal Coronavir NL63 PCR Nasal Coronavir OC43 PCR Nasal Enterovir/Rhinovir PCR Nasal Influenza B PCR Nasal Influenza A PCR Nasal Parainfluen 1 PCR Nasal Parainfluen 2 PCR Nasal Parainfluen 3 PCR Nasal Parainfluen 4 PCR Nasal RSV (PCR) Nasal B.pertussis DNA PCR Nasal C.pneumoniae (PCR) Bryce Human Metapneumo PCR Nasal M.pneumoniae (PCR) Nasal SARS-CoV-2 (PCR) Ethyl Alcohol - Rads (name of study) ct head Radiology: EMP read contemporaneously (Left cerebellar hemisphere mass causing local mass-effect could be neoplastic, infection, or subacute hemorrhage. Dil ation of the third and lateral ventricles consistent with obstructive hydrocephalus.) PD MEDICAL DECISION MAKING - ED course ED course: This is a 60-year-old woman with history of recent Covid infection who has been confused, falling. 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 This was discussed by phone with her . She will need transfer to a higher level of care for further evaluation and treatment. We are calling [facility] to start at his request. She was administered Rocephin IV as well as Decadron here. Spoke with NOHEMI Rand at 1900 in [facility] and rec xfer to or [facility]. He was accepted by Dr. Ruggiero's resident to [facility] and subsequently by Dr. Atkinson to the neuro ICU at [facility]. Given potential impending herniation we will activate [facility]. Departure - Departure Disposition: 02 Transfer Acute Care Hosp Clinical Impression: Cerebellar mass, COVID-19, Confusion Condition: Serious
[2020-12-14 17:17] LABS: BASOPHILS # (AUTO) 0.1 10^3/uL (0.0-0.1); BASOPHILS % (AUTO) 0.4 %; EOSINOPHILS # (AUTO) 0.1 10^3/uL (0.0-0.7); EOSINOPHILS % (AUTO) 0.9 %; HGB - HEMOGLOBIN 12.9 g/dL (12.0-16.0); LYMPHOCYTES # (AUTO) 4.1 10^3/uL (1.5-3.5); LYMPHOCYTES % (AUTO) 29.3 %; MEAN CORPUSCULAR HEMOGLOBIN 29.1 pg (27.0-31.0); MEAN CORPUSCULAR HGB CONC 32.8 g/dL (32.0-36.0); MEAN CORPUSCULAR VOLUME 88.5 fL (81.0-99.0); MEAN PLATELET VOLUME 9.8 fL (7.9-10.8); MONOCYTES # (AUTO) 0.8 10^3/uL (0.0-1.0); MONOCYTES % (AUTO) 5.5 %; NEUTROPHILS # (AUTO) 8.8 10^3/uL (1.5-6.6); NEUTROPHILS % (AUTO) 63.5 %; PLT - PLATELET COUNT 358 10^3/uL (130-450); RED BLOOD COUNT 4.44 10^6/uL (4.20-5.40); RED CELL DISTRIBUTION WIDTH 14.5 % (12.0-15.0); WHITE BLOOD COUNT 13.9 x10^3/uL (4.8-10.8)
[2020-12-14 17:26] LABS: BILIRUBIN,URINE NEGATIVE (NEGATIVE); GLUCOSE, URINE (UA) NEGATIVE (NEGATIVE); KETONES,URINE (UA) TRACE mg/dL (NEGATIVE); LEUKOCYTE ESTERASE, URINE SMALL (NEGATIVE); NITRITE,URINE POSITIVE (NEGATIVE); OCCULT BLOOD,URINE NEGATIVE (NEGATIVE); PROTEIN,URINE TRACE mg/dL (NEGATIVE); UROBILINOGEN,URINE 0.2 (NORMAL) E.U./dL (NORMAL)
[2020-12-14 17:28] LABS: ALBUMIN 3.9 g/dL (3.2-5.5); ALBUMIN/GLOBULIN RATIO 1.1 (1.0-2.2); ALKALINE PHOSPHATASE 77 IU/L (42-121); ALT ALANINE AMINOTRANSFERASE 13 IU/L (10-60); AST ASPARTATE AMINOTRANSFERASE 16 IU/L (10-42); BILIRUBIN,TOTAL 0.7 mg/dL (0.2-1.0); BUN - BLOOD UREA NITROGEN 25 mg/dL (6-20); CALCIUM 9.7 mg/dL (8.5-10.3); CARBON DIOXIDE - CO2 25 mmol/L (21-32); CHLORIDE 99 mmol/L (101-111); CREATININE 0.9 mg/dL (0.4-1.0); GLUCOSE 175 mg/dL (70-100); MAGNESIUM 1.5 mg/dL (1.7-2.8); SODIUM 136 mmol/L (135-145); TOTAL PROTEIN 7.5 g/dL (6.7-8.2)
[2020-12-14 17:33] LABS: CLARITY,URINE CLEAR (CLEAR)
[2020-12-14 17:39] LABS: BACTERIA,URINE Many /HPF (None Seen); CRYSTALS,URINE 3-5 Calcium Oxalate /LPF; SQUAMOUS EPITHELIAL CELL,UR RARE Squamous (<= Few); WBC CLUMPS,URINE PRESENT
[2020-12-14] MEDS ORDERED: DEXAMETHASONE 10 MG/ML VIAL IVP STA (18:05)
--- NOTE | 2020-12-14 18:07 | CT Report ---
PROCEDURE: HEAD WO INDICATIONS: Acute altered mental status. TECHNIQUE: Noncontrast 4.5 mm thick angled axial sections acquired from the foramen magnum to the vertex. For r adiation dose reduction, the following was used: automated exposure control, adjustment of mA and/or kV according to patient size. COMPARISON: 08/22/2020. FINDINGS: Image quality: Excellent. CSF spaces: Basal cisterns are patent. No extra-axial fluid collections. There is effacement of the fourth ventricle. The third and lateral ventricles are mildly dilated. Brain: Ill-defined hypodensity noted in the left cerebellar hemisphere associated with area of cystic change. There is local mass effect with right to left midline shift, mass effect on the fourth ventr icle and partial effacement of the left ambient cistern.. Travis-white matter interface is normal. Skull and face: Calvarium and visualized facial bones are intact, without suspicious lesions. Sinuses: Mucous retention cyst versus polyp noted in the right sphenoid sinus. Mild mucosal thickenin g noted in the visualized maxillary sinuses. Postsurgical changes compatible with left partial mastoi dectomy noted. IMPRESSION: 1. Left cerebellar hemisphere mass causing local mass effect. Finding could be secondary to underlyin g neoplastic process including metastatic disease, infection or subacute hemorrhagic infarct. Recomme nd MRI of the brain with and without contrast for definitive characterization. 2. Mild dilatation involving the third and lateral ventricles compatible with obstructive hydrocephal us. 3. Findings telephoned to Dr. Spencer on 12/14/2020 at 1801 hours PST. Reviewed by: Valerie Echeverria MD, PhD on 12/14/2020 5:06 PM AKST Approved by: Valerie Echeverria MD, PhD on 12/14/2020 5:06 PM AKST Station ID: [id number]
[2020-12-14 18:27] LABS: C. PNEUMONIAE- RESP PCR PANEL NOT DETECTED
[2020-12-14 23:17] VITALS: BP 107/65
== END 2020-12-14 23:10 | disposition short-term general hospital (02) ==
LOC: ED 16:24
DX: U07.1 COVID-19 (principal); G93.89 Other specified disorders of brain; R41.0 Disorientation, unspecified; I10 Essential (primary) hypertension; E11.9 Type 2 diabetes mellitus without complications; Z79.4 Long term (current) use of insulin; F17.200 Nicotine dependence, unspecified, uncomplicated
CPT/HCPCS: 0202U; 36415; 70450; 80053; 80320; 81001; 81003; 82140; 83605; 83735; 85025; 87040; 87086; 87181; 93005; 96374; 99285

== ENCOUNTER 2021-01-05 12:15 | Outpatient (CLI) | payer MEDICARE, MEDICAID ==
[2021-01-05 18:08] LABS: BASOPHILS # (AUTO) 0.1 10^3/uL (0.0-0.1); BASOPHILS % (AUTO) 1.1 %; EOSINOPHILS # (AUTO) 0.4 10^3/uL (0.0-0.7); HGB - HEMOGLOBIN 9.2 g/dL (12.0-16.0); LYMPHOCYTES # (AUTO) 1.7 10^3/uL (1.5-3.5); LYMPHOCYTES % (AUTO) 31.9 %; MEAN CORPUSCULAR HEMOGLOBIN 28.8 pg (27.0-31.0); MEAN CORPUSCULAR HGB CONC 30.3 g/dL (32.0-36.0); MEAN PLATELET VOLUME 9.7 fL (7.9-10.8); MONOCYTES # (AUTO) 0.4 10^3/uL (0.0-1.0); MONOCYTES % (AUTO) 7.8 %; NEUTROPHILS # (AUTO) 2.7 10^3/uL (1.5-6.6); PLT - PLATELET COUNT 575 10^3/uL (130-450); RED CELL DISTRIBUTION WIDTH 17.7 % (12.0-15.0); WHITE BLOOD COUNT 5.3 x10^3/uL (4.8-10.8)
[2021-01-05 18:59] LABS: ALBUMIN 2.5 g/dL (3.2-5.5); ALBUMIN/GLOBULIN RATIO 0.6 (1.0-2.2); CALCIUM 9.3 mg/dL (8.5-10.3); CREATININE 0.6 mg/dL (0.4-1.0); CRP - C-REACTIVE PROTEIN 3.3 mg/dL (0-1.0); TOTAL PROTEIN 6.9 g/dL (6.7-8.2)
== END 2021-01-05 23:59 | disposition home or self-care (01) ==
LOC: LAB.R 12:15
PROVIDERS: ATTEND Internal Medicine
DX: U07.1 COVID-19 (principal); G06.0 Intracranial abscess and granuloma
CPT/HCPCS: 80053; 85025; 85651; 86140

== ENCOUNTER 2021-01-12 11:45 | Outpatient (CLI) | payer MEDICARE, MEDICAID ==
[2021-01-12 18:47] LABS: BASOPHILS # (AUTO) 0.1 10^3/uL (0.0-0.1); BASOPHILS % (AUTO) 1.6 %; EOSINOPHILS # (AUTO) 0.5 10^3/uL (0.0-0.7); EOSINOPHILS % (AUTO) 6.8 %; HGB - HEMOGLOBIN 10.7 g/dL (12.0-16.0); LYMPHOCYTES # (AUTO) 2.2 10^3/uL (1.5-3.5); LYMPHOCYTES % (AUTO) 29.3 %; MEAN CORPUSCULAR HEMOGLOBIN 29.4 pg (27.0-31.0); MEAN CORPUSCULAR HGB CONC 31.2 g/dL (32.0-36.0); MEAN CORPUSCULAR VOLUME 94.2 fL (81.0-99.0); MEAN PLATELET VOLUME 9.8 fL (7.9-10.8); MONOCYTES # (AUTO) 0.6 10^3/uL (0.0-1.0); NEUTROPHILS # (AUTO) 4.1 10^3/uL (1.5-6.6); NEUTROPHILS % (AUTO) 53.9 %; PLT - PLATELET COUNT 449 10^3/uL (130-450); RED BLOOD COUNT 3.64 10^6/uL (4.20-5.40); RED CELL DISTRIBUTION WIDTH 18.1 % (12.0-15.0); WHITE BLOOD COUNT 7.6 x10^3/uL (4.8-10.8)
[2021-01-12 19:01] LABS: ALBUMIN 2.8 g/dL (3.2-5.5); ALBUMIN/GLOBULIN RATIO 0.7 (1.0-2.2); ALKALINE PHOSPHATASE 68 IU/L (42-121); ALT ALANINE AMINOTRANSFERASE 15 IU/L (10-60); AST ASPARTATE AMINOTRANSFERASE 17 IU/L (10-42); BILIRUBIN,TOTAL 0.9 mg/dL (0.2-1.0); BUN - BLOOD UREA NITROGEN 9 mg/dL (6-20); CALCIUM 9.3 mg/dL (8.5-10.3); CARBON DIOXIDE - CO2 26 mmol/L (21-32); CHLORIDE 103 mmol/L (101-111); CREATININE 0.5 mg/dL (0.4-1.0); GLUCOSE 72 mg/dL (70-100); TOTAL PROTEIN 7.1 g/dL (6.7-8.2)
[2021-01-12 19:35] LABS: CRP - C-REACTIVE PROTEIN < 1.0 mg/dL (0-1.0)
== END 2021-01-12 23:59 | disposition home or self-care (01) ==
LOC: LAB.R 11:45
PROVIDERS: ATTEND Internal Medicine
DX: U07.1 COVID-19 (principal); G06.0 Intracranial abscess and granuloma
CPT/HCPCS: 80053; 85025; 85651; 86140

== ENCOUNTER 2021-01-27 08:00 | Outpatient (CLI) | payer MEDICARE, MEDICAID ==
[2021-01-27 11:47] LABS: BASOPHILS # (AUTO) 0.1 10^3/uL (0.0-0.1); EOSINOPHILS # (AUTO) 0.6 10^3/uL (0.0-0.7); EOSINOPHILS % (AUTO) 4.9 %; HCT - HEMATOCRIT 34.5 % (37.0-47.0); HGB - HEMOGLOBIN 10.4 g/dL (12.0-16.0); LYMPHOCYTES % (AUTO) 16.8 %; MEAN CORPUSCULAR HEMOGLOBIN 29.3 pg (27.0-31.0); MEAN CORPUSCULAR HGB CONC 30.1 g/dL (32.0-36.0); MEAN CORPUSCULAR VOLUME 97.2 fL (81.0-99.0); MEAN PLATELET VOLUME 10.1 fL (7.9-10.8); MONOCYTES # (AUTO) 1.1 10^3/uL (0.0-1.0); NEUTROPHILS # (AUTO) 8.2 10^3/uL (1.5-6.6); NEUTROPHILS % (AUTO) 67.9 %; PLT - PLATELET COUNT 327 10^3/uL (130-450); RED BLOOD COUNT 3.55 10^6/uL (4.20-5.40)
[2021-01-27 12:00] LABS: ALBUMIN 2.6 g/dL (3.2-5.5); ALBUMIN/GLOBULIN RATIO 0.7 (1.0-2.2); BILIRUBIN,TOTAL 1.2 mg/dL (0.2-1.0); CALCIUM 9.1 mg/dL (8.5-10.3); CREATININE 0.6 mg/dL (0.4-1.0); POTASSIUM 4.2 mmol/L (3.5-5.0); TOTAL PROTEIN 6.3 g/dL (6.7-8.2)
== END 2021-01-27 23:59 | disposition home or self-care (01) ==
LOC: LAB.R 08:00
PROVIDERS: ATTEND Internal Medicine
DX: U07.1 COVID-19 (principal); E06.0 Acute thyroiditis
CPT/HCPCS: 80053; 85025; 86140

== ENCOUNTER 2021-02-03 14:15 | Outpatient (CLI) | payer MEDICARE, MEDICAID ==
[2021-02-03 14:54] LABS: BASOPHILS # (AUTO) 0.1 10^3/uL (0.0-0.1); BASOPHILS % (AUTO) 1.4 %; EOSINOPHILS # (AUTO) 0.5 10^3/uL (0.0-0.7); EOSINOPHILS % (AUTO) 5.8 %; HCT - HEMATOCRIT 36.6 % (37.0-47.0); HGB - HEMOGLOBIN 11.5 g/dL (12.0-16.0); LYMPHOCYTES # (AUTO) 2.3 10^3/uL (1.5-3.5); LYMPHOCYTES % (AUTO) 28.8 %; MEAN CORPUSCULAR HEMOGLOBIN 29.9 pg (27.0-31.0); MEAN CORPUSCULAR HGB CONC 31.4 g/dL (32.0-36.0); MEAN CORPUSCULAR VOLUME 95.1 fL (81.0-99.0); MEAN PLATELET VOLUME 9.9 fL (7.9-10.8); MONOCYTES # (AUTO) 0.5 10^3/uL (0.0-1.0); MONOCYTES % (AUTO) 6.1 %; NEUTROPHILS # (AUTO) 4.5 10^3/uL (1.5-6.6); NEUTROPHILS % (AUTO) 57.5 %; PLT - PLATELET COUNT 471 10^3/uL (130-450); RED BLOOD COUNT 3.85 10^6/uL (4.20-5.40); RED CELL DISTRIBUTION WIDTH 16.6 % (12.0-15.0); WHITE BLOOD COUNT 7.9 x10^3/uL (4.8-10.8)
[2021-02-03 15:02] LABS: ALBUMIN 2.7 g/dL (3.2-5.5); ALBUMIN/GLOBULIN RATIO 0.6 (1.0-2.2); BILIRUBIN,TOTAL 1.5 mg/dL (0.2-1.0); CALCIUM 9.7 mg/dL (8.5-10.3); CREATININE 0.6 mg/dL (0.4-1.0); CRP - C-REACTIVE PROTEIN 1.2 mg/dL (0-1.0); POTASSIUM 4.5 mmol/L (3.5-5.0); TOTAL PROTEIN 7.2 g/dL (6.7-8.2)
[2021-02-03 15:34] LABS: PLATELET ESTIMATE, MANUAL INCREASED (>450,000) (NORMAL)
== END 2021-02-03 23:59 | disposition home or self-care (01) ==
LOC: LAB.R 14:15
PROVIDERS: ATTEND Internal Medicine
DX: U07.1 COVID-19 (principal); G06.0 Intracranial abscess and granuloma
CPT/HCPCS: 80053; 85025; 85651; 86140

== ENCOUNTER 2021-02-10 07:00 | Outpatient (CLI) | payer MEDICARE, MEDICAID ==
[2021-02-10 18:15] LABS: BASOPHILS # (AUTO) 0.1 10^3/uL (0.0-0.1); BASOPHILS % (AUTO) 1.3 %; EOSINOPHILS # (AUTO) 0.4 10^3/uL (0.0-0.7); EOSINOPHILS % (AUTO) 4.9 %; HCT - HEMATOCRIT 38.1 % (37.0-47.0); HGB - HEMOGLOBIN 11.3 g/dL (12.0-16.0); LYMPHOCYTES # (AUTO) 2.6 10^3/uL (1.5-3.5); LYMPHOCYTES % (AUTO) 33.6 %; MEAN CORPUSCULAR HEMOGLOBIN 28.8 pg (27.0-31.0); MEAN CORPUSCULAR HGB CONC 29.7 g/dL (32.0-36.0); MEAN CORPUSCULAR VOLUME 96.9 fL (81.0-99.0); MEAN PLATELET VOLUME 10.3 fL (7.9-10.8); MONOCYTES # (AUTO) 0.6 10^3/uL (0.0-1.0); MONOCYTES % (AUTO) 7.3 %; NEUTROPHILS % (AUTO) 52.5 %; PLT - PLATELET COUNT 422 10^3/uL (130-450); RED BLOOD COUNT 3.93 10^6/uL (4.20-5.40); RED CELL DISTRIBUTION WIDTH 16.8 % (12.0-15.0); WHITE BLOOD COUNT 7.6 x10^3/uL (4.8-10.8)
[2021-02-10 18:30] LABS: ALBUMIN 3.1 g/dL (3.2-5.5); ALBUMIN/GLOBULIN RATIO 0.7 (1.0-2.2); ALKALINE PHOSPHATASE 65 IU/L (42-121); ALT ALANINE AMINOTRANSFERASE 26 IU/L (10-60); AST ASPARTATE AMINOTRANSFERASE 18 IU/L (10-42); BILIRUBIN,TOTAL 2.1 mg/dL (0.2-1.0); BUN - BLOOD UREA NITROGEN 11 mg/dL (6-20); CALCIUM 9.3 mg/dL (8.5-10.3); CARBON DIOXIDE - CO2 25 mmol/L (21-32); CHLORIDE 104 mmol/L (101-111); GFR - MDRD 57 (>89); GLUCOSE 91 mg/dL (70-100); POTASSIUM 4.2 mmol/L (3.5-5.0); SODIUM 140 mmol/L (135-145); TOTAL PROTEIN 7.3 g/dL (6.7-8.2)
[2021-02-10 18:31] LABS: CRP - C-REACTIVE PROTEIN < 1.0 mg/dL (0-1.0)
== END 2021-02-10 23:59 | disposition home or self-care (01) ==
LOC: LAB.WCP 07:00
PROVIDERS: ATTEND Internal Medicine
DX: U07.1 COVID-19 (principal); G06.0 Intracranial abscess and granuloma
CPT/HCPCS: 36415; 80053; 85025; 85651; 86140

== ENCOUNTER 2021-03-03 08:00 | Outpatient (CLI) | payer MEDICARE, MEDICAID ==
[2021-03-03 18:24] LABS: BASOPHILS # (AUTO) 0.1 10^3/uL (0.0-0.1); EOSINOPHILS # (AUTO) 0.3 10^3/uL (0.0-0.7); EOSINOPHILS % (AUTO) 5.2 %; HCT - HEMATOCRIT 38.8 % (37.0-47.0); HGB - HEMOGLOBIN 11.7 g/dL (12.0-16.0); LYMPHOCYTES # (AUTO) 1.9 10^3/uL (1.5-3.5); LYMPHOCYTES % (AUTO) 33.7 %; MEAN CORPUSCULAR HEMOGLOBIN 29.3 pg (27.0-31.0); MEAN CORPUSCULAR HGB CONC 30.2 g/dL (32.0-36.0); MEAN PLATELET VOLUME 11.1 fL (7.9-10.8); MONOCYTES # (AUTO) 0.5 10^3/uL (0.0-1.0); NEUTROPHILS % (AUTO) 51.9 %; PLT - PLATELET COUNT 274 10^3/uL (130-450); RED CELL DISTRIBUTION WIDTH 17.3 % (12.0-15.0); WHITE BLOOD COUNT 5.8 x10^3/uL (4.8-10.8)
[2021-03-03 18:48] LABS: ALBUMIN 2.9 g/dL (3.2-5.5); ALBUMIN/GLOBULIN RATIO 0.7 (1.0-2.2); ALKALINE PHOSPHATASE 78 IU/L (42-121); ALT ALANINE AMINOTRANSFERASE 26 IU/L (10-60); AST ASPARTATE AMINOTRANSFERASE 19 IU/L (10-42); BILIRUBIN,TOTAL 1.9 mg/dL (0.2-1.0); BUN - BLOOD UREA NITROGEN 15 mg/dL (6-20); CALCIUM 9.2 mg/dL (8.5-10.3); CARBON DIOXIDE - CO2 27 mmol/L (21-32); CHLORIDE 103 mmol/L (101-111); CREATININE 0.9 mg/dL (0.4-1.0); GFR - MDRD 64 (>89); GLUCOSE 318 mg/dL (70-100); POTASSIUM 3.9 mmol/L (3.5-5.0); SODIUM 142 mmol/L (135-145); TOTAL PROTEIN 6.8 g/dL (6.7-8.2)
[2021-03-03 18:57] LABS: CRP - C-REACTIVE PROTEIN < 1.0 mg/dL (0-1.0)
== END 2021-03-03 23:59 | disposition home or self-care (01) ==
LOC: LAB.WCP 08:00
PROVIDERS: ATTEND Internal Medicine
DX: G06.0 Intracranial abscess and granuloma (principal); H70.92 Unspecified mastoiditis, left ear; R78.81 Bacteremia; B95.61 Methicillin susceptible Staphylococcus aureus infection as the cause of diseases classified elsewhere
CPT/HCPCS: 36415; 80053; 85025; 85651; 86140

== ENCOUNTER 2021-03-19 08:00 | Outpatient (CLI) | payer MEDICARE, MEDICAID ==
[2021-03-19 17:40] LABS: BASOPHILS # (AUTO) 0.1 10^3/uL (0.0-0.1); BASOPHILS % (AUTO) 1.2 %; EOSINOPHILS # (AUTO) 0.3 10^3/uL (0.0-0.7); EOSINOPHILS % (AUTO) 4.9 %; HCT - HEMATOCRIT 37.7 % (37.0-47.0); HGB - HEMOGLOBIN 11.5 g/dL (12.0-16.0); LYMPHOCYTES # (AUTO) 2.2 10^3/uL (1.5-3.5); LYMPHOCYTES % (AUTO) 34.2 %; MEAN CORPUSCULAR HEMOGLOBIN 29.8 pg (27.0-31.0); MEAN CORPUSCULAR HGB CONC 30.5 g/dL (32.0-36.0); MEAN CORPUSCULAR VOLUME 97.7 fL (81.0-99.0); MONOCYTES # (AUTO) 0.5 10^3/uL (0.0-1.0); MONOCYTES % (AUTO) 7.7 %; NEUTROPHILS # (AUTO) 3.4 10^3/uL (1.5-6.6); NEUTROPHILS % (AUTO) 51.8 %; PLT - PLATELET COUNT 265 10^3/uL (130-450); RED BLOOD COUNT 3.86 10^6/uL (4.20-5.40); RED CELL DISTRIBUTION WIDTH 16.9 % (12.0-15.0); WHITE BLOOD COUNT 6.5 x10^3/uL (4.8-10.8)
[2021-03-19 18:05] LABS: ALBUMIN 2.9 g/dL (3.2-5.5); ALBUMIN/GLOBULIN RATIO 0.8 (1.0-2.2); ALKALINE PHOSPHATASE 84 IU/L (42-121); ALT ALANINE AMINOTRANSFERASE 26 IU/L (10-60); AST ASPARTATE AMINOTRANSFERASE 21 IU/L (10-42); BILIRUBIN,TOTAL 1.9 mg/dL (0.2-1.0); BUN - BLOOD UREA NITROGEN 17 mg/dL (6-20); CALCIUM 9.1 mg/dL (8.5-10.3); CARBON DIOXIDE - CO2 26 mmol/L (21-32); CHLORIDE 103 mmol/L (101-111); CREATININE 0.7 mg/dL (0.4-1.0); GFR - MDRD 85 (>89); GLUCOSE 193 mg/dL (70-100); POTASSIUM 4.3 mmol/L (3.5-5.0); SODIUM 140 mmol/L (135-145); TOTAL PROTEIN 6.6 g/dL (6.7-8.2)
[2021-03-19 18:12] LABS: CRP - C-REACTIVE PROTEIN < 1.0 mg/dL (0-1.0)
== END 2021-03-19 23:59 | disposition home or self-care (01) ==
LOC: LAB.WCP 08:00
PROVIDERS: ATTEND Internal Medicine
DX: G06.0 Intracranial abscess and granuloma (principal); Z79.2 Long term (current) use of antibiotics; B95.61 Methicillin susceptible Staphylococcus aureus infection as the cause of diseases classified elsewhere; R78.81 Bacteremia; H70.92 Unspecified mastoiditis, left ear; I33.0 Acute and subacute infective endocarditis
CPT/HCPCS: 36415; 80053; 85025; 85651; 86140

== ENCOUNTER 2021-05-10 09:43 | Outpatient (CLI) | payer MEDICARE, MEDICAID ==
[2021-05-10 10:11] LABS: BASOPHILS # (AUTO) 0.1 10^3/uL (0.0-0.1); BASOPHILS % (AUTO) 0.6 %; EOSINOPHILS # (AUTO) 0.3 10^3/uL (0.0-0.7); EOSINOPHILS % (AUTO) 3.9 %; HCT - HEMATOCRIT 37.6 % (37.0-47.0); HGB - HEMOGLOBIN 11.9 g/dL (12.0-16.0); LYMPHOCYTES # (AUTO) 2.3 10^3/uL (1.5-3.5); LYMPHOCYTES % (AUTO) 29.6 %; MEAN CORPUSCULAR HEMOGLOBIN 31.3 pg (27.0-31.0); MEAN CORPUSCULAR HGB CONC 31.6 g/dL (32.0-36.0); MEAN CORPUSCULAR VOLUME 98.9 fL (81.0-99.0); MEAN PLATELET VOLUME 9.7 fL (7.9-10.8); MONOCYTES # (AUTO) 0.5 10^3/uL (0.0-1.0); MONOCYTES % (AUTO) 6.2 %; NEUTROPHILS # (AUTO) 4.7 10^3/uL (1.5-6.6); NEUTROPHILS % (AUTO) 59.3 %; PLT - PLATELET COUNT 319 10^3/uL (130-450); RED CELL DISTRIBUTION WIDTH 14.6 % (12.0-15.0); WHITE BLOOD COUNT 7.9 x10^3/uL (4.8-10.8)
[2021-05-10 10:29] LABS: CREATININE,URINE 56.3 mg/dL; MICROALBUM/CREATININE RATIO,UR 33.7 ug/mg (<30.0); MICROALBUMIN,URINE 1.9 mg/dL (0-300.0)
[2021-05-10 10:32] LABS: ALBUMIN 3.8 g/dL (3.2-5.5); ALBUMIN/GLOBULIN RATIO 1.1 (1.0-2.2); ALKALINE PHOSPHATASE 78 IU/L (42-121); ALT ALANINE AMINOTRANSFERASE 20 IU/L (10-60); AST ASPARTATE AMINOTRANSFERASE 19 IU/L (10-42); BILIRUBIN,TOTAL 1.2 mg/dL (0.2-1.0); BUN - BLOOD UREA NITROGEN 13 mg/dL (6-20); CALCIUM 10.3 mg/dL (8.5-10.3); CARBON DIOXIDE - CO2 26 mmol/L (21-32); CHLORIDE 104 mmol/L (101-111); CHOL/HDL RATIO 2.6 (<4.4); CHOLESTEROL 150 mg/dL; CK- CREATINE KINASE 52 IU/L (22-269); CREATININE 0.8 mg/dL (0.4-1.0); GFR - MDRD 73 (>89); GLUCOSE 111 mg/dL (70-100); HDL CHOLESTEROL 58 mg/dL; LDL CHOLESTEROL,CALCULATED 68 mg/dL; LDL/HDL RATIO 1.2 (<4.4); POTASSIUM 4.9 mmol/L (3.5-5.0); SODIUM 142 mmol/L (135-145); TOTAL PROTEIN 7.4 g/dL (6.7-8.2); TRIGLYCERIDES 120 mg/dL; VLDL CHOLESTEROL 24 mg/dL
[2021-05-10 10:41] LABS: THYROID STIMULATING HORMONE 1.7 uIU/mL (0.34-5.60)
[2021-05-10 12:08] LABS: ESTIMATED AVERAGE GLUCOSE 97 mg/dL (70-100)
== END 2021-05-10 09:44 | disposition home or self-care (01) ==
LOC: LAB 09:43
PROVIDERS: ATTEND Internal Medicine
DX: Z79.899 Other long term (current) drug therapy (principal); Z13.6 Encounter for screening for cardiovascular disorders; G06.0 Intracranial abscess and granuloma; E11.9 Type 2 diabetes mellitus without complications; M19.90 Unspecified osteoarthritis, unspecified site; K21.9 Gastro-esophageal reflux disease without esophagitis; J44.9 Chronic obstructive pulmonary disease, unspecified; J30.2 Other seasonal allergic rhinitis; I10 Essential (primary) hypertension
CPT/HCPCS: 36415; 80053; 80061; 82043; 82550; 82570; 82607; 83036; 83721; 84443; 85025

== ENCOUNTER 2021-08-04 13:07 | Outpatient (CLI) | payer MEDICARE, MEDICAID ==
--- NOTE | 2021-08-05 13:24 | Mammography Report ---
BILATERAL DIGITAL SCREENING MAMMOGRAM 3D/2D: 08/04/2021 CLINICAL: Family history of breast cancer. Routine screening. Comparison is made to exams dated: 06/08/2020 mammogram, 03/09/2017 mammogram, 02/11/2016 mammogram, an d 02/05/2015 mammogram - [facility]. The tissue of both breasts is predominantly fa tty. There are benign calcifications in both breasts. No significant masses, calcifications, or other findings are seen in either breast. There has been no significant interval change. IMPRESSION: BENIGN There is no mammographic evidence of malignancy. A 1 year screening mammogram is recommended. This exam was interpreted at Station ID: [id number]. NOTE: For mammograms, a report in lay terms will be sent to the patient. Approximately 15% of breast malignancies will not be visualized mammographically. In the management of a palpable breast mass, a negative mammogram must not discourage biopsy of a clinically suspicious lesion. Electronically Signed By: Yosi Perez acr/penrad:08/04/2021 13:46:53 ACR BI-RADS Category 2: Benign Finding(s) 3342F PARENCHYMAL PATTERN: (F) - The breast(s) demonstrate(s) diffuse fatty replacement. BI-RADS CATEGORY: (2) - 2 RECOMMENDATION: (ANNUAL) - Recommend routine annual screening mammography. [id number] 1 year screening LATERALITY: (B)
== END 2021-08-04 13:08 | disposition home or self-care (01) ==
LOC: DI.N 13:07
PROVIDERS: ATTEND Internal Medicine
DX: Z12.31 Encounter for screening mammogram for malignant neoplasm of breast (principal); Z80.3 Family history of malignant neoplasm of breast

== ENCOUNTER 2021-11-01 08:00 | Outpatient (CLI) | payer MEDICARE, MEDICAID ==
[2021-11-01 16:47] LABS: BILIRUBIN,URINE NEGATIVE (NEGATIVE); GLUCOSE, URINE (UA) NEGATIVE (NEGATIVE); KETONES,URINE (UA) NEGATIVE (NEGATIVE); LEUKOCYTE ESTERASE, URINE LARGE (NEGATIVE); NITRITE,URINE NEGATIVE (NEGATIVE); OCCULT BLOOD,URINE NEGATIVE (NEGATIVE); PROTEIN,URINE NEGATIVE (NEGATIVE); UROBILINOGEN,URINE 0.2 (NORMAL) E.U./dL (NORMAL)
[2021-11-01 16:54] LABS: CLARITY,URINE HAZY (CLEAR)
[2021-11-01 17:34] LABS: BACTERIA,URINE Few /HPF (None Seen); EPITHELIAL CELLS,UR FEW Transitional /HPF (<= Few); RBC,URINE 0-5 /HPF (0-5); SQUAMOUS EPITHELIAL CELL,UR RARE Squamous (<= Few); WBC,URINE >25 /HPF (0-5)
== END 2021-11-01 23:59 ==
LOC: LAB.R 08:00
PROVIDERS: ATTEND Internal Medicine
DX: N39.0 Urinary tract infection, site not specified (principal); R39.9 Unspecified symptoms and signs involving the genitourinary system
CPT/HCPCS: 81001; 87086; 87181

== ENCOUNTER 2021-11-29 08:00 | Outpatient (CLI) | payer MEDICARE, MEDICAID ==
[2021-12-06 13:12] LABS: CLARITY,URINE HAZY (CLEAR); LEUKOCYTE ESTERASE, URINE SMALL (NEGATIVE); NITRITE,URINE NEGATIVE (NEGATIVE); OCCULT BLOOD,URINE NEGATIVE (NEGATIVE); PROTEIN,URINE NEGATIVE (NEGATIVE); UROBILINOGEN,URINE 0.2 (NORMAL) E.U./dL (NORMAL)
[2021-12-06 13:13] LABS: BACTERIA,URINE Few /HPF (None Seen); BILIRUBIN,URINE NEGATIVE (NEGATIVE); GLUCOSE, URINE (UA) 250 mg/dL (NEGATIVE); KETONES,URINE (UA) NEGATIVE (NEGATIVE); RBC,URINE 0-5 /HPF (0-5); SQUAMOUS EPITHELIAL CELL,UR FEW Squamous (<= Few)
== END 2021-11-29 23:59 ==
LOC: LAB.R 08:00
PROVIDERS: ATTEND Internal Medicine
DX: R30.0 Dysuria (principal); R39.9 Unspecified symptoms and signs involving the genitourinary system; R39.15 Urgency of urination
CPT/HCPCS: 81001; 81003; 87077; 87086; 87181

== ENCOUNTER 2022-01-05 08:00 | Outpatient (CLI) | payer MEDICARE, MEDICAID | END 2022-01-05 23:59 | disposition home or self-care (01) | LOC: LAB.R 08:00 | PROVIDERS: ATTEND Internal Medicine | DX: R39.9 Unspecified symptoms and signs involving the genitourinary system (principal) | CPT/HCPCS: 87086; 87181 ==

== ENCOUNTER 2022-01-10 08:00 | Outpatient (CLI) | payer MEDICARE, MEDICAID ==
[2022-01-10 16:50] LABS: BILIRUBIN,URINE NEGATIVE (NEGATIVE); GLUCOSE, URINE (UA) NEGATIVE (NEGATIVE); KETONES,URINE (UA) NEGATIVE (NEGATIVE); LEUKOCYTE ESTERASE, URINE TRACE (NEGATIVE); NITRITE,URINE NEGATIVE (NEGATIVE); OCCULT BLOOD,URINE NEGATIVE (NEGATIVE); PROTEIN,URINE NEGATIVE (NEGATIVE); UROBILINOGEN,URINE 0.2 (NORMAL) E.U./dL (NORMAL)
[2022-01-10 16:55] LABS: CREATININE 1.2 mg/dL (0.4-1.0); POTASSIUM 5.7 mmol/L (3.5-5.0)
[2022-01-10 17:08] LABS: BACTERIA,URINE None Seen /HPF (None Seen); CLARITY,URINE CLEAR (CLEAR); RBC,URINE 0-5 /HPF (0-5); SQUAMOUS EPITHELIAL CELL,UR RARE Squamous (<= Few)
[2022-01-10 20:01] LABS: ESTIMATED AVERAGE GLUCOSE 143 mg/dL (70-100); HEMOGLOBIN A1c% 6.6 % (4.27-6.07)
== END 2022-01-10 23:59 ==
LOC: LAB.R 08:00
PROVIDERS: ATTEND Internal Medicine
DX: E11.9 Type 2 diabetes mellitus without complications (principal); R39.9 Unspecified symptoms and signs involving the genitourinary system; R30.0 Dysuria
CPT/HCPCS: 80048; 81001; 81003; 83036; 87086

== ENCOUNTER 2022-01-19 08:00 | Outpatient (CLI) | payer MEDICARE, MEDICAID ==
[2022-01-19 16:37] LABS: CALCIUM 10.4 mg/dL (8.5-10.3); CREATININE 1.1 mg/dL (0.4-1.0); POTASSIUM 5.2 mmol/L (3.5-5.0)
== END 2022-01-19 23:59 | disposition home or self-care (01) ==
LOC: LAB.R 08:00
PROVIDERS: ATTEND Internal Medicine
DX: E11.9 Type 2 diabetes mellitus without complications (principal); R30.0 Dysuria
CPT/HCPCS: 80048

== ENCOUNTER 2022-03-22 08:00 | Outpatient (CLI) | payer MEDICARE, MEDICAID ==
[2022-03-22 16:27] LABS: BILIRUBIN,URINE NEGATIVE (NEGATIVE); GLUCOSE, URINE (UA) NEGATIVE (NEGATIVE); KETONES,URINE (UA) NEGATIVE (NEGATIVE); LEUKOCYTE ESTERASE, URINE TRACE (NEGATIVE); NITRITE,URINE NEGATIVE (NEGATIVE); OCCULT BLOOD,URINE NEGATIVE (NEGATIVE); PROTEIN,URINE 30 mg/dL (NEGATIVE); UROBILINOGEN,URINE 0.2 (NORMAL) E.U./dL (NORMAL)
[2022-03-22 16:29] LABS: CLARITY,URINE HAZY (CLEAR)
[2022-03-22 16:41] LABS: BACTERIA,URINE Moderate /HPF (None Seen); RBC,URINE 0-5 /HPF (0-5); SQUAMOUS EPITHELIAL CELL,UR FEW Squamous (<= Few); WBC,URINE >25 /HPF (0-5)
== END 2022-03-22 08:01 | disposition home or self-care (01) ==
LOC: LAB.R 08:00
PROVIDERS: ATTEND Internal Medicine
DX: R39.9 Unspecified symptoms and signs involving the genitourinary system (principal)
CPT/HCPCS: 81001; 87077; 87086; 87181

== ENCOUNTER 2022-04-18 15:34 | Outpatient (CLI) | payer MEDICARE, MEDICAID ==
[2022-04-18 15:47] LABS: BILIRUBIN,URINE NEGATIVE (NEGATIVE); GLUCOSE, URINE (UA) NEGATIVE (NEGATIVE); KETONES,URINE (UA) NEGATIVE (NEGATIVE); LEUKOCYTE ESTERASE, URINE SMALL (NEGATIVE); NITRITE,URINE POSITIVE (NEGATIVE); OCCULT BLOOD,URINE TRACE-INTA (NEGATIVE); PROTEIN,URINE 100 mg/dL (NEGATIVE); UROBILINOGEN,URINE 0.2 (NORMAL) E.U./dL (NORMAL)
[2022-04-18 15:54] LABS: CLARITY,URINE HAZY (CLEAR)
[2022-04-18 16:02] LABS: BACTERIA,URINE Many /HPF (None Seen); SQUAMOUS EPITHELIAL CELL,UR RARE Squamous (<= Few); WBC CLUMPS,URINE PRESENT; WBC,URINE >25 /HPF (0-5)
== END 2022-04-18 15:35 | disposition home or self-care (01) ==
LOC: LAB.R 15:34
PROVIDERS: ATTEND Internal Medicine
DX: N39.0 Urinary tract infection, site not specified (principal); R39.9 Unspecified symptoms and signs involving the genitourinary system
CPT/HCPCS: 81001; 87077; 87086; 87181

== ENCOUNTER 2022-06-14 09:59 | Outpatient (CLI) | payer MEDICARE, MEDICAID ==
[2022-06-14 10:48] LABS: BASOPHILS # (AUTO) 0.1 10^3/uL (0.0-0.1); BASOPHILS % (AUTO) 0.7 %; EOSINOPHILS # (AUTO) 0.4 10^3/uL (0.0-0.7); HCT - HEMATOCRIT 39.7 % (37.0-47.0); LYMPHOCYTES # (AUTO) 2.6 10^3/uL (1.5-3.5); LYMPHOCYTES % (AUTO) 27.3 %; MEAN CORPUSCULAR HEMOGLOBIN 30.2 pg (27.0-31.0); MEAN CORPUSCULAR HGB CONC 32.7 g/dL (32.0-36.0); MEAN CORPUSCULAR VOLUME 92.3 fL (81.0-99.0); MEAN PLATELET VOLUME 10.1 fL (7.9-10.8); MONOCYTES # (AUTO) 0.5 10^3/uL (0.0-1.0); MONOCYTES % (AUTO) 5.3 %; NEUTROPHILS # (AUTO) 5.9 10^3/uL (1.5-6.6); NEUTROPHILS % (AUTO) 62.3 %; PLT - PLATELET COUNT 248 10^3/uL (130-450); RED CELL DISTRIBUTION WIDTH 14.5 % (12.0-15.0); WHITE BLOOD COUNT 9.4 x10^3/uL (4.8-10.8)
[2022-06-14 11:03] LABS: ALBUMIN 4.2 g/dL (3.2-5.5); ALBUMIN/GLOBULIN RATIO 1.4 (1.0-2.2); ALKALINE PHOSPHATASE 73 IU/L (42-121); ALT ALANINE AMINOTRANSFERASE 19 IU/L (10-60); AST ASPARTATE AMINOTRANSFERASE 18 IU/L (10-42); BILIRUBIN,TOTAL 0.6 mg/dL (0.2-1.0); BUN - BLOOD UREA NITROGEN 16 mg/dL (6-20); CALCIUM 9.7 mg/dL (8.5-10.3); CARBON DIOXIDE - CO2 27 mmol/L (21-32); CHLORIDE 106 mmol/L (101-111); CHOL/HDL RATIO 2.2 (<4.4); CHOLESTEROL 118 mg/dL; CK- CREATINE KINASE 90 IU/L (22-269); CREATININE 0.7 mg/dL (0.4-1.0); GFR - MDRD 85 (>89); GLUCOSE 107 mg/dL (70-100); HDL CHOLESTEROL 54 mg/dL; LDL CHOLESTEROL,CALCULATED 51 mg/dL; LDL/HDL RATIO 0.9 (<4.4); POTASSIUM 4.6 mmol/L (3.5-5.0); SODIUM 140 mmol/L (135-145); TOTAL PROTEIN 7.3 g/dL (6.7-8.2); TRIGLYCERIDES 67 mg/dL; VLDL CHOLESTEROL 13 mg/dL
[2022-06-14 14:08] LABS: ESTIMATED AVERAGE GLUCOSE 143 mg/dL (70-100); HEMOGLOBIN A1c% 6.6 % (4.27-6.07)
[2022-06-14 16:21] LABS: CREATININE,URINE 30.9 mg/dL; MICROALBUM/CREATININE RATIO,UR 19.4 ug/mg (<30.0); MICROALBUMIN,URINE 0.6 mg/dL (0-300.0)
== END 2022-06-14 10:00 | disposition home or self-care (01) ==
LOC: LAB 09:59
PROVIDERS: ATTEND Internal Medicine
DX: Z00.00 Encounter for general adult medical examination without abnormal findings (principal); J44.9 Chronic obstructive pulmonary disease, unspecified; E11.9 Type 2 diabetes mellitus without complications; M79.7 Fibromyalgia; K21.9 Gastro-esophageal reflux disease without esophagitis; Z86.19 Personal history of other infectious and parasitic diseases; I10 Essential (primary) hypertension; M19.90 Unspecified osteoarthritis, unspecified site; J30.2 Other seasonal allergic rhinitis
CPT/HCPCS: 36415; 80053; 80061; 82043; 82550; 82570; 83036; 83721; 84443; 85025; 86787

== ENCOUNTER 2022-06-22 08:00 | Outpatient (CLI) | payer MEDICARE, MEDICAID ==
[2022-06-23 21:07] LABS: VARICELLA-ZOSTER AB IGM <0.91 index (0.00-0.90)
[2022-06-24 09:09] LABS: VARICELLA-ZOSTER AB IGG 267 index (Immune >165)
== END 2022-06-22 23:59 | disposition home or self-care (01) ==
LOC: LAB.R 08:00
PROVIDERS: ATTEND Internal Medicine
DX: Z00.00 Encounter for general adult medical examination without abnormal findings (principal); J44.9 Chronic obstructive pulmonary disease, unspecified; E11.9 Type 2 diabetes mellitus without complications; M79.7 Fibromyalgia; K21.9 Gastro-esophageal reflux disease without esophagitis; Z86.19 Personal history of other infectious and parasitic diseases; I10 Essential (primary) hypertension; M19.90 Unspecified osteoarthritis, unspecified site; J30.2 Other seasonal allergic rhinitis
CPT/HCPCS: 86787

== ENCOUNTER 2023-06-20 08:47 | Outpatient (CLI) | payer MEDICARE, MEDICAID ==
[2023-06-20 09:30] LABS: BASOPHILS # (AUTO) 0.1 10^3/uL (0.0-0.1); BASOPHILS % (AUTO) 0.8 %; EOSINOPHILS # (AUTO) 0.5 10^3/uL (0.0-0.7); EOSINOPHILS % (AUTO) 5.8 %; HCT - HEMATOCRIT 39.7 % (37.0-47.0); HGB - HEMOGLOBIN 12.6 g/dL (12.0-16.0); LYMPHOCYTES # (AUTO) 2.7 10^3/uL (1.5-3.5); MEAN CORPUSCULAR HEMOGLOBIN 29.4 pg (27.0-31.0); MEAN CORPUSCULAR HGB CONC 31.7 g/dL (32.0-36.0); MEAN CORPUSCULAR VOLUME 92.5 fL (81.0-99.0); MEAN PLATELET VOLUME 9.8 fL (7.9-10.8); MONOCYTES # (AUTO) 0.6 10^3/uL (0.0-1.0); MONOCYTES % (AUTO) 6.9 %; NEUTROPHILS % (AUTO) 56.2 %; PLT - PLATELET COUNT 233 10^3/uL (130-450); RED BLOOD COUNT 4.29 10^6/uL (4.20-5.40)
[2023-06-20 09:42] LABS: ALBUMIN 4.4 g/dL (3.2-5.5); ALBUMIN/GLOBULIN RATIO 1.6 (1.0-2.2); ALKALINE PHOSPHATASE 70 IU/L (42-121); ALT ALANINE AMINOTRANSFERASE 15 IU/L (10-60); AST ASPARTATE AMINOTRANSFERASE 15 IU/L (10-42); BILIRUBIN,TOTAL 0.5 mg/dL (0.2-1.0); BUN - BLOOD UREA NITROGEN 18 mg/dL (6-20); CALCIUM 10.1 mg/dL (8.5-10.3); CARBON DIOXIDE - CO2 26 mmol/L (21-32); CHLORIDE 108 mmol/L (101-111); CHOL/HDL RATIO 2.5 (<4.4); CHOLESTEROL 119 mg/dL; CREATININE 0.8 mg/dL (0.6-1.3); GFR - MDRD 72 (>89); GLUCOSE 100 mg/dL (74-104); HDL CHOLESTEROL 48 mg/dL; LDL CHOLESTEROL,CALCULATED 39 mg/dL; LDL/HDL RATIO 0.8 (<4.4); POTASSIUM 4.5 mmol/L (3.5-4.5); SODIUM 137 mmol/L (135-145); TOTAL PROTEIN 7.2 g/dL (6.4-8.9); TRIGLYCERIDES 159 mg/dL (48-352); VLDL CHOLESTEROL 32 mg/dL
[2023-06-20 09:59] LABS: MICROALBUMIN,URINE < 0.7 mg/dL
[2023-06-20 11:44] LABS: ESTIMATED AVERAGE GLUCOSE 148 mg/dL (70-100); HEMOGLOBIN A1c% 6.8 % (4.27-6.07)
== END 2023-06-20 08:48 | disposition home or self-care (01) ==
LOC: LAB 08:47
PROVIDERS: ATTEND Internal Medicine
DX: Z00.00 Encounter for general adult medical examination without abnormal findings (principal); J44.9 Chronic obstructive pulmonary disease, unspecified; E11.9 Type 2 diabetes mellitus without complications; K21.9 Gastro-esophageal reflux disease without esophagitis; I10 Essential (primary) hypertension; J30.2 Other seasonal allergic rhinitis; Z79.899 Other long term (current) drug therapy
CPT/HCPCS: 36415; 80053; 80061; 82043; 82570; 83036; 83721; 84443; 85025

== ENCOUNTER 2023-06-26 13:12 | Outpatient (CLI) | payer MEDICARE, MEDICAID ==
--- NOTE | 2023-06-27 10:13 | Mammography Report ---
BILATERAL DIGITAL SCREENING MAMMOGRAM 3D/2D: 06/26/2023 CLINICAL: Family history of breast cancer. Routine screening. Comparison is made to exams dated: 08/04/2021 mammogram, 06/08/2020 mammogram, 03/09/2017 mammogram, 01/25 mammogram, and 02/05/2015 mammogram - [facility]. There are scattered areas of fibroglandular density in both breasts (category b / 25%-50% glandular t issue). There are benign calcifications in both breasts. No significant masses, calcifications, or other findings are seen in either breast. There has been no significant interval change. IMPRESSION: BENIGN There is no mammographic evidence of malignancy. A 1 year screening mammogram is recommended. Based on the Tyrer Cuzick model (a risk assessment model) the patients lifetime risk is 10.5% and he r 10 year risk is 4.7%. According to the ACR, ACS, and NCCN guidelines, an annual breast MRI exam ting ng with mammogram is recommended if the patients lifetime risk is 20% or greater. This exam was interpreted at Station ID: [id number]. NOTE: For mammograms, a report in lay terms will be sent to the patient. Approximately 15% of breast malignancies will not be visualized mammographically. In the management of a palpable breast mass, a negative mammogram must not discourage biopsy of a clinically suspicious lesion. Electronically Signed By: Tu henriquez/lacie:06/26/2023 20:11:42 letter sent: No_Letter ACR BI-RADS Category 2: Benign Finding(s) 3342F PARENCHYMAL PATTERN: (A) - The breast(s) demonstrate(s) scattered fibroglandular densities. BI-RADS CATEGORY: (2) - 2 Mammogram [id number] 1 year screening LATERALITY: (B)
== END 2023-06-26 13:13 | disposition home or self-care (01) ==
LOC: DI.N 13:12
PROVIDERS: ATTEND Internal Medicine
DX: Z12.31 Encounter for screening mammogram for malignant neoplasm of breast (principal); Z80.3 Family history of malignant neoplasm of breast

== ENCOUNTER 2024-06-27 10:06 | Outpatient (CLI) | payer MEDICARE, MEDICAID ==
--- NOTE | 2024-06-27 17:02 | XRAY Report ---
PROCEDURE: Chest 2V INDICATIONS: COPD,HYPERTENSION TECHNIQUE: 2 views of the chest were acquired. COMPARISON: Chest radiograph on August 24, 2020. FINDINGS: Surgical changes and devices: None. Lungs and pleura: No pleural effusions or pneumothorax. Middle lobe patchy consolidation. Hyperexpan shital of the lungs with flattening of the diaphragms. Mediastinum: Mediastinal contours appear normal. Heart size is normal. Bones and chest wall: No suspicious bony lesions. Overlying soft tissues appear unremarkable. Calc ification of the abdominal aorta. Multilevel degenerative changes of the spine. IMPRESSION: 1.Middle lobe patchy consolidation suggestive of atelectasis, aspiration and/or pneumonia. Recommend radiographic follow-up to document resolution.Recommend radiographic follow-up to document resolution and rule out underlying neoplasm. 2.Hyperexpansion of the lungs with flattening of the diaphragms compatible with known history of COPD . Reviewed by: Montserrat Amor MD on 06/27/2024 5:00 PM PDT Approved by: Montserrat Amor MD on 06/27/2024 5:00 PM PDT Station ID: [id number]
== END 2024-06-27 10:07 | disposition home or self-care (01) ==
LOC: DI 10:06
PROVIDERS: ATTEND Internal Medicine
DX: J44.9 Chronic obstructive pulmonary disease, unspecified (principal); I10 Essential (primary) hypertension; R91.8 Other nonspecific abnormal finding of lung field